=== PATIENT | female | born 1965 | race African-American/Black ===

== ENCOUNTER 2024-08-12 09:50 | Outpatient (AMB) | payer OTHER, SELFPAY ==
--- NOTE | 2024-08-12 10:22 | A.OFFPC_ITS ---
Vital Signs 08/12/24 10:30 Height 5 ft 2 in Weight 298 lb 8 oz BMI 54.6 BP 134/74 Blood Pressure Location Lt brachial Position Sitting Respiration 15 Pulse 83 Pulse Source Pulse Oximeter Pulse Oximetry (%) 99 Oxygen Delivery Method Room Air Intake Visit Reasons: New Pat. Est. Care Intake Note: new patient to establish care and patient also needs refill on medications. Allergies Penicillins Allergy (Severe, Verified 08/12/24 10:47) Hives Medication List - Last Reconciled 08/12/24 by Gwen Gomez, [facility]- albuterol sulfate 90 mcg/actuation inhalation amlodipine 10 mg PO DAILY atorvastatin (Lipitor) 10 mg PO DAILY budesonide-formoterol 160-4.5 mcg/actuation 2 puffs inhalation BID hydrochlorothiazide 25 mg PO DAILY losartan 50 mg PO DAILY Tobacco use date assessed: 08/12/24 Dental Screening Dental Screen Date: 08/12/24 Did you have a dental visit in the last 12 months?: No Did you have a dental problem in the last 6 months where you did not have access to dental care?: No Was dental information given to patient?: No HPI HPI Comments History of Present Illness0 Details 59 y/o F with With generalized anxiety, major depressive disorder, hypertension, COPD, Obesity , Iron def anemia, Vit D def Social: disabled Health Maintenance: ? Colon ? Mammo ? DEXA ? PAP ? Tdap Specialists: Pulm Counselor Here today as a new patient, to [facility], Coming from [facility] in [place], [place]. Relocated to [place] in March 2024. No medical records available for me today. HTN controlled on current therapy. Denies cardiac complaints. COPD well controlled on current inhaler, was ff'd by Pulm in [place]. States she has already had her flu vaccine for the 2019 season. Reports that she has received 1 pneumococcal vaccine within the 5 years FABI/MDD Mood stable w/o med. active in counseling, this is helpful. Denies SI/HI. Exam Awake alert oriented, no acute distress Regular rate and rhythm Lung sounds diminished throughout Mood and affect appropriate Plan Pulmonology referral for routine COPD management Continue current medications as prescribed Return to office in 8-10 weeks for a routine follow up and to continue establish care, fasting labs to be done 1 week before, sooner as needed [facility] Medical History (Updated 08/12/24 @ 15:33 by Gwen Gomez, [facility]) Anxiety and depression Edema Swelling Arthritis Hypertension Chronic bronchitis Surgical History (Updated 08/12/24 @ 10:36 by Frank Powell MA) No pertinent past surgical history Family History (Updated 08/12/24 @ 10:37 by Frank Powell MA) Mother Hypertension High cholesterol Diabetes Social History (Updated 08/12/24 @ 10:30 by Frank Powell MA) Household Members: None Housing: Apartment Are you a primary healthcare or medical to a significant other at home: No Do you presently have visiting nurse or other home services: No 75 years or older and lives alone: No Alcohol intake: current Alcohol intake frequency: a few times a month Alcohol type: beer and wine Patient Tobacco Use Status: Never used Tobacco e-Cigarette/Vaping Use: Never Used Current occupational status: disabled Cognitive needs: No Hearing needs: No Vision needs: Yes (wear glasses) Questionnaire PHQ-9 Over the last 2 weeks, how often have you been bothered by any of the following problems? 1. Little interest or pleasure in doing things: not at all 2. Feeling down, depressed, or hopeless: several days 3. Trouble falling or staying asleep, or sleeping too much: several days 4. Feeling tired or having little energy: several days 5. Poor appetite or overeating: more than half the days 6. Feeling bad about yourself - or that you are a failure or have let yourself or your family down: not at all 7. Trouble concentrating on things, such as reading the newspaper or watching television: not at all 8. Moving or speaking so slowly that other people could have noticed. Or the opposite - being so fidgety or restless that you have been moving around a lot more than usual: not at all 9. Thoughts that you would be better off or of hurting yourself in some way: not at all Total score: 5 Depression Screening Interpretation: Negative Depression Screening Done: Yes 39985 - PHQ-9 Billing: Yes Source: Developed by Drs. Gene Bennett, Jenn Cardona, Crescencio Ricketts and colleagues, with an educational katina from [employer]. Thrive Questionnaire Date Thrive assessed: 08/12/24 I am a: Patient What is your living situation today?: I have a steady place to live Within the past 12 months, did the food you bought not last and you didn't have the money to get more?: Sometimes True Within the past 12 months, did you worry whether your food would run out before you got money to buy more?: Sometimes True Do you have trouble paying for medicines?: No Do you have trouble getting transportation to medical appointments?: No Do you have trouble paying your heating and electricity bill?: No Do you have trouble taking care of your child, family member or friend?: No Do you have trouble with day-to-day activities such as bathing, preparing meals, shopping, managing finances, etc.?: Yes Are you currently unemployed and looking for a job?: No Are you interested in more education?: No THRIVE Score: 2 AUDIT C Alcohol Use Questionnaire (AUDIT-C) 1. How often do you have a drink containing alcohol?: Monthly or less 2. How many drinks containing alcohol do you have on a typical day when you are drinking?: 1 or 2 3. How often do you have six or more drinks on one occasion?: Never Total Score: 1 Score Reviewed/Action Taken: Yes FABI-7 AMB Questionnaire FABI-7 Date FABI - 7 assessed: 08/12/24 Feeling nervous, anxious, or on edge: 1 = Several days Not being able to stop or control worryin = Several days Worrying too much about different things: 1 = Several days Trouble relaxin = Not at all Being so restless that it is hard to sit still: 0 = Not at all Becoming easily annoyed or irritable: 0 = Not at all Feeling afraid as if something awful might happen: 0 = Not at all Total FABI-7 score (0-4 normal; 5-9 mild; 10-14 moderate; 15-21 severe): 3 Source: Developed by Drs. Gene Bennett, Jenn Cardona, Crescencio Ricketts and colleagues, with an educational katina from [employer]. FABI-7 Assessment Billing FABI-7 Assessment Tool: FABI-7 Assessment 49038 ACT Questionnaire In the past 4 weeks, how much of the time did your asthma keep you from getting as much done at work, school or at home?: Some of the time During the past 4 weeks, how often have you had shortness of breath?: 1-2 times a week During the past 4 weeks, how often did your asthma symptoms wake you up at night or earlier than usual in the morning?: Once or twice per week During the past 4 weeks, how often have you had to use your rescue inhaler or nebulizer medication?: Not at all How would you rate your asthma control during the past 4 weeks?: Well controlled ACT Interpretation: Negative Score: 20 Physical exam (Primary Care) Vital Signs: Last Vital Signs Pulse 83 08/12/24 10:30 Resp 15 08/12/24 10:30 BP 134/74 08/12/24 10:30 Pulse Ox 99 08/12/24 10:30 Oxygen Delivery Method Room Air 08/12/24 10:30 BMI result Body Mass Index 54.6 Tobacco/Smoking Status: Tobacco use Status Tobacco use date assessed 08/12/24 08/12/24 10:33 Patient Tobacco Use Status Never used Tobacco 08/12/24 10:33 e-Cigarette/Vaping Use Never Used 08/12/24 10:33 PHQ-9: PHQ-9 Score PHQ-9: Total score 5 08/12/24 10:51 Depression Screening Interpretation: Negative Thrive Assessment: Date of Thrive Assessment Date Thrive assessed 08/12/24 08/12/24 10:37 Assessment and Plan Assessment & Plan (1) COPD (chronic obstructive pulmonary disease): Code(s): J44.9 - Chronic obstructive pulmonary disease, unspecified Qualifiers: COPD type: chronic bronchitis Chronic bronchitis type: simple Qualified Code(s): J41.0 - Simple chronic bronchitis (2) HTN (hypertension): Code(s): I10 - Essential (primary) hypertension Qualifiers: Hypertension type: primary hypertension Qualified Code(s): I10 - Essential (primary) hypertension (3) Vitamin D deficiency: Code(s): E55.9 - Vitamin D deficiency, unspecified (4) Iron deficiency anemia: Code(s): D50.9 - Iron deficiency anemia, unspecified Qualifiers: Iron deficiency anemia type: unspecified iron deficiency Qualified Code(s): D50.9 - Iron deficiency anemia, unspecified (5) FABI (generalized anxiety disorder): Code(s): F41.1 - Generalized anxiety disorder (6) MDD (major depressive disorder), recurrent episode: Code(s): F33.9 - Major depressive disorder, recurrent, unspecified Qualifiers: Major depression episode severity: moderate Qualified Code(s): F33.1 - Major depressive disorder, recurrent, moderate (7) Morbid obesity with BMI of 50.0-59.9, adult: Code(s): E66.01 - Morbid (severe) obesity due to excess calories; Z68.43 - Body mass index [BMI] 50.0-59.9, adult Orders: Orders Comprehensive [place]. Panel Fast 09/04/24 D50.9 - Iron deficiency anemia, unspecified, E55.9 - Vitamin D deficiency, unspecified, I10 - Essential (primary) hypertension, J44.9 - Chronic obstructive pulmonary disease, unspecified Hemoglobin A1c 09/04/24 D50.9 - Iron deficiency anemia, unspecified, E55.9 - Vitamin D deficiency, unspecified, I10 - Essential (primary) hypertension, J44.9 - Chronic obstructive pulmonary disease, unspecified Complete Blood Count no Diff 09/04/24 D50.9 - Iron deficiency anemia, unspecified, E55.9 - Vitamin D deficiency, unspecified, I10 - Essential (primary) hypertension, J44.9 - Chronic obstructive pulmonary disease, unspecified IRON PROFILE 09/04/24 D50.9 - Iron deficiency anemia, unspecified, E55.9 - Vitamin D deficiency, unspecified, I10 - Essential (primary) hypertension, J44.9 - Chronic obstructive pulmonary disease, unspecified TSH reflex Free T4 09/04/24 D50.9 - Iron deficiency anemia, unspecified, E55.9 - Vitamin D deficiency, unspecified, I10 - Essential (primary) hypertension, J44.9 - Chronic obstructive pulmonary disease, unspecified Vitamin B12 and Folate 09/04/24 D50.9 - Iron deficiency anemia, unspecified, E55.9 - Vitamin D deficiency, unspecified, I10 - Essential (primary) hypertension, J44.9 - Chronic obstructive pulmonary disease, unspecified Lipid Panel 09/04/24 D50.9 - Iron deficiency anemia, unspecified, E55.9 - Vitamin D deficiency, unspecified, I10 - Essential (primary) hypertension, J44.9 - Chronic obstructive pulmonary disease, unspecified Microalbumin, Random (w Creat) 09/04/24 D50.9 - Iron deficiency anemia, unspecified, E55.9 - Vitamin D deficiency, unspecified, I10 - Essential (primary) hypertension, J44.9 - Chronic obstructive pulmonary disease, unspeci fied Vitamin D 25-OH Total 09/04/24 D50.9 - Iron deficiency anemia, unspecified, E55.9 - Vitamin D deficiency, unspecified, I10 - Essential (primary) hypertension, J44.9 - Chronic obstructive pulmonary disease, unspecified Referrals Pulmonology Referral J44.9 - Chronic obstructive pulmonary disease, unspecified Medications: New losartan 50 mg PO DAILY 90 tabs 0RF albuterol sulfate 90 mcg/actuation 2 puffs inhalation Q6H PRN 8.5 grams 2RF bronchospasm amlodipine 10 mg PO DAILY 90 tabs 0RF atorvastatin (Lipitor) 10 mg PO DAILY 90 tabs 0RF budesonide-formoterol 160-4.5 mcg/actuation 2 puffs inhalation BID 30.6 grams 0RF hydrochlorothiazide 25 mg PO DAILY 90 tabs 0RF Patient Instructions: Walk-In Care (Urgent Care): We Make it Easy Walk-in for urgent medical issues such as: ? Seasonal Allergies ? Insect Bites ? Cough ? Diarrhea ? Acute Asthma Attacks ? Back, Knee or Joint Pain ? Ear Infection ? Fever without a Rash ? Headaches ? Nausea ? [place], Rash or Skin Irritation ? Sore Throat ? Sports Physicals ? Vomiting Most insurances are accepted. Patients do not need to be part of the [facility] to seek care at the walk-in clinic. Locations [facility] , [place] [address] ? [phone] [facility] Walk-In Care in [place] provides services to ages 18 and over. Open Thursday-Thursday: 8 a.m. to 5 p.m. and Thursday: 9 a.m. to 3 p.m.* *Hours may vary due to staffing availability. To confirm Walk-In Care hours in [place], please call [phone]. [address] [place] [address] ? [phone] [facility] Walk-In Care in [place] provides services to ages 12 and over. Open Thursday-Thursday: 8 a.m. to 5 p.m. Hours may vary due to staffing availability. To confirm Walk-In Care hours in [place], please call [phone]. LABORATORY SERVICES: [facility] Lab ? Primary Location [address] [place] [address] Thursday through Thursday 6:00 AM ? 5:00 PM Thursday 7:00 AM ? 11:00 AM* [phone] The [facility] Lab is centrally located near the front entrance of the [facility] for easy outpatient access. Convenient parking is provided for outpatients. *Hours may vary due to staffing availability. To confirm Laboratory hours for a [place] location, please call [phone]. Offsite Location For your convenience, we offer offsite laboratory draw stations at the following locations: [address] [place] [address] ? [facility] [address], [address] Thursday through Thursday 7:30 AM ? 1:00 PM* [phone] *Hours may vary due to staffing availability. To confirm Laboratory hours for any location, please call [phone]. [place] ? [address] Thursday through Thursday 6:00 AM ? 3:30 PM* Thursday 6:30 AM ? 3 PM* [phone] *Hours may vary due to staffing availability. To confirm Laboratory hours for any location, please call [phone] [place] [address] Thursday through Thursday 7:30 AM ? 4:00 PM* [phone] *Hours may vary due to staffing availability. To confirm Laboratory hours for any location, please call [phone] [place] [address] Thursday through 9:00 AM ? 4:00 PM* *Hours may vary due to staffing availability. To confirm Laboratory hours for any location, please call [phone]. Appointments are not necessary. Walk-ins are welcome. Like all the departments throughout the [facility], our Lab undergoes frequent reviews to ensure the quality and accuracy of test results, and our staff takes special pride in its status as a nationally accredited facility. Patient Portal: ONE PATIENT. ONE RECORD. BETTER CARE. [facility] has a fully integrated, cutting- edge mobile electronic health information system that has revolutionized the way we care for our patients and manage our organization. This system improves communication and coordination enabling us to provide safe, higher-quality care, and an overall positive experience for staff and patients. Our first priority, as always, is to deliver the highest quality care possible. The system is running in the background supporting that priority. This portal is for all [facility] services and practices. If you are experiencing any technical difficulties with enrolling or logging into the Patient Portal please complete the [facility] Patient Portal Technical Support Form. [facility] now offers a new secure on-line interactive tool for patients to review their health information ? ?Patient Portal. This interactive web portal will enable patients and their families to take an active role in their care by providing easy, secure access to their health information via the internet. The Patient Portal provides patients with instant access to their health information, including laboratory results, medications, allergies, demographic information, visit history, and more. In addition to managing their own care, parents and health care proxies with authorized consent will appreciate the ability to access the records of those individuals for whom they provide care. Please note: if you wish to gain access (Proxy) to another patient?s portal, you will be required to come to the Medical Records Department in person at [facility]. Both the patient giving proxy access and the proxy will need to provide photo identification and complete the appropriate authorization. The Patient Portal also allows track their appointments online. The [facility] Patient Portal also saves patients time by allowing them to submit updates to their demographic and contact information prior to their visits. Portal email notifications will also alert patients to any new activity on their portal, such as test results and new appointments. In order to initially enroll in the [facility] Patient Portal, you will need to enter some required information including the following: * your [facility] Medical Record number * your personal home email address * name * date of Please note: In order to enroll in the [facility] Patient Portal, we need to have your email address on file in your electronic medical record. ?The email address needs to be specific for one person (yourself) in order for your Portal enrollment to be successful. ?You can update your email address in person with our Registration staff when you are registering for a hospital visit. ?Otherwise, you will need to come to the Health Information Management (Medical Records) Department at [facility]. ?We are open from Thursday ? Thursday from 7:30 a.m. ? 4:30 p.m. ?You will be required to present a photo id. Once you have successfully enrolled in the Patient Portal, you will receive a one-time user id and password for the Portal, sent to your email address. ?This will allow you to log into the Patient Portal within 99 hrs and reset your own logon id and password, and define personal security questions. ?Once your permanent login and password have been set, you can log into the [facility] Patient Portal at any time via the blue button above or from the Portal Logon button on any page of the [facility] website. [facility] encourage all of our patients to enroll in Patient Portal as it presents a valuable opportunity for patients and their families to actively participate in their care and stay healthy Welcome to [facility]. ?We look forward to working with you. Coding Level of Care Code New Pt Level 4 (27662) Complex EM visit Add On G2211 Diagnoses Simple chronic bronchitis J41.0 COPD type: chronic bronchitis Chronic bronchitis type: simple Primary hypertension I10 Hypertension type: primary hypertension Vitamin D deficiency E55.9 Iron deficiency anemia, unspecified iron deficiency anemia type D50.9 Iron deficiency anemia type: unspecified iron deficiency FABI (generalized anxiety disorder) F41.1 Moderate episode of recurrent major depressive disorder F33.1 Major depression episode severity: moderate Morbid obesity with BMI of 50.0-59.9, adult E66.01; Z68.43 Additional Codes FABI-7 Assessment Billing - FABI-7 Assessment Tool: FABI-7 Assessment 84648 ([id number])
[2024-08-12 10:30] VITALS: BP 134/74; PULSE 83; RESP 15; O2SAT 99; BMI 54.6
== END 2024-08-12 10:58 | disposition home or self-care (01) ==
PROVIDERS: Visit Provider Nurse Practitioner Family
DX: J41.0 Simple chronic bronchitis (principal); F33.1 Major depressive disorder, recurrent, moderate; E66.01 Morbid (severe) obesity due to excess calories; Z68.43 Body mass index [BMI] 50.0-59.9, adult; I10 Essential (primary) hypertension; E55.9 Vitamin D deficiency, unspecified; D50.9 Iron deficiency anemia, unspecified; F41.1 Generalized anxiety disorder

== ENCOUNTER → 2024-08-12 09:50 | Outpatient (BNVA) | payer OTHER, SELFPAY | PROVIDERS: Visit Provider Nurse Practitioner Family | DX: J41.0 Simple chronic bronchitis (principal); I10 Essential (primary) hypertension; E55.9 Vitamin D deficiency, unspecified; D50.9 Iron deficiency anemia, unspecified; F41.1 Generalized anxiety disorder; F33.1 Major depressive disorder, recurrent, moderate; E66.01 Morbid (severe) obesity due to excess calories; Z68.43 Body mass index [BMI] 50.0-59.9, adult | CPT/HCPCS: 96127; 99202 ==

== ENCOUNTER 2024-12-14 08:50 | Outpatient (AMB) | payer OTHER, SELFPAY ==
--- NOTE | 2024-12-14 08:53 | MHC.PC.OV ---
Vital Signs 12/14/24 09:01 Height 5 ft 2 in Weight 306 lb 6 oz BMI 56.0 BP 110/68 Blood Pressure Location Rt brachial Position Sitting Respiration 16 Pulse 88 Pulse Source Pulse Oximeter Temp 98.4 F Temp Source Oral Pulse Oximetry (%) 96 Oxygen Delivery Method Room Air Intake Visit Reasons: 8-10 weeks 30 min routine fu/est care labs Intake Note: pt states she is having left leg pain due to arthritis Allergies Penicillins Allergy (Severe, Verified 12/14/24 09:06) Hives Medication List - Last Reconciled 12/14/24 by Andres Gomez, [facility]- albuterol sulfate 90 mcg/actuation 2 puffs inhalation Q6H PRN amlodipine 10 mg PO DAILY atorvastatin (Lipitor) 10 mg PO DAILY budesonide-formoterol 160-4.5 mcg/actuation 2 puffs inhalation BID hydrochlorothiazide 25 mg PO DAILY ibuprofen 600 mg PO TID PRN losartan 50 mg PO DAILY Tobacco use date assessed: 08/12/24 Dental Screening Dental Screen Date: 08/12/24 HPI HPI Comments History of Present Illness Details 59 y/o F with generalized anxiety, major depressive disorder, hypertension, COPD, Obesity , Iron def anemia, Vit D def, prediabetes Social: disabled Health Maintenance: ?Colon referral placed today ?Mammo ordered today ?DEXA ordered today ?PAP referred today ?Tdap given today 12/14/24 Flu UTD Specialists: Pulm Counselor Optho - last exam 1 year ago, will schedule exam at [facility]. Referral placed today. 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 She reports worsening symptoms including swelling and aching, especially after attending a social event Pain w/ ROM all directions makes climbing stairs hard. The patient manages the pain with ibuprofen 600 mg, which provides some relief, but notes that inflammation remains problematic. Also using bengay. The patient links these symptoms to her lifestyle as she remains active, with recent cooking activities during holidays noted as exacerbation factors. Would like [employer] for help w/ ADLs. Wonders about disability letter from me. HTN managed by current meds MDD/FABI stable on current meds Vit D def - stopped taking supplement, insurance wouldnt pay. COPD - referred to Pulm, was not able to make the appt. Taking inhalers as directed. Cold weather worsens her breathing. Review of Systems - Musculoskeletal: Reports Left lower leg pain and swelling. - Respiratory: Reports dyspnea on exertion, especially climbing stairs. - Back: Reports spasms and lower back pain. - Digestive: Denies abdominal pain. Exam: General: Well developed, well nourished, in no acute distress. Appears stated age. Head: Normocephalic, atraumatic. Eyes: Pupils are equal, round and reactive to light and accommodation. Conjunctivae are clear. Ears: TMs clear AU, EACS WNL Nose: Patent, without discharge. Mouth: There are no ulcers or lesions noted. No inflammation, no post nasal drip, no plaques nor exudates. Neck: Supple, no adenopathy or thyromegaly. Lungs: Clear to auscultation bilaterally. Dim throughout Heart: Regular rate and rhythm. 2/6 murmurs RSB, No click, rubs or gallops are noted. Abdomen: Bowel sounds present in all quadrants. The abdomen is soft, nontender, with no masses or organomegaly noted. No hernias are noted. Musculoskeletal: c/o pain w/ ROM all directions L knee, antalgic gait favoring L side, neurovasc intact Pulses: Peripheral pulses are equal and palpable bilaterally. Extremities: No clubbing, cyanosis is noted. Neurologic: Gait and station normal. Cranial Nerves 2-12 intact. Motor strength grossly symmetrical and intact. No sensory loss. Balance normal. Skin: No rashes, ulcers, or lesions noted. Turgor is good. Skin color is good. Hair and nails are without abnormalities. Psych: Normal eye contact, affect and mood appropriate, and normal interactions. Patient is alert and appropriate to context. Results: Labs from 12/14/2024 show low MCV and MCH 79.4, 25.9 otherwise normal CBC, normal electrolytes, normal renal function, hemoglobin A1c of 6.0%, normal calcium and iron profile, normal AST and ALT, elevated alk-phos at 142 elevated protein at 8.4, normal albumin, total cholesterol 184, triglycerides 102, LDL 102, HDL 62, normal B12, vitamin-D quite low at 13.9, normal folate and TSH Plan - Continue oral ibuprofen 600 mg, introducing topical diclofenac for localized application on arthritic joints. -Cont all meds as ordered Adjust PRN lab results- which are overdue and to be done today, - Initiate echocardiogram to evaluate newly detected heart murmur. - Schedule mammogram and bone density test in [place]. - Arrange a pulmonology follow-up appointment for COPD reassessment and manage dyspnea on exertion effectively. - Encourage weight management through dietary modifications and exercise as tolerated. - Provide information on [facility] services for obtaining home support assistance. Seek disability info from [employer] -info provided today. - Advise completion of eye exam, offering [place] as a location. Patient was informed and verbally consented to the use of an ambient scribe for clinic note documentation during this visit. Discussion Notes I discussed with the patient the detection of a heart murmur, and the plan to perform an echocardiogram for comprehensive evaluation. We discussed the benefits and potential relief that topical ibuprofen might provide for arthritis pain management. I emphasized the importance of keeping upcoming health maintenance appointments such as the mammogram and bone density test. I advised on further pulmonary follow-up for symptomatic COPD management to address the exertional dyspnea she is experiencing. I provided guidance on utilizing community support through [facility] for her functional limitations in daily activities. The patient was instructed on the relevance of maintaining walk-in blood work for monitoring vitamin D levels and overall health. I reinforced the importance of weight management as part of her treatment plan. Patient Instructions - Continue with current medications and start using topical ibuprofen twice daily to manage joint pain. - Arrange for blood work today to reassess vitamin D levels and overall health. - Expect a call for scheduling mammogram and bone density test. - Follow up with the heel sprayer first for COPD-related concerns. - Contact [facility] for a home assistance evaluation. - Keep an eye on symptoms and seek medical attention if significant changes occur. - Consider scheduling an eye exam locally when convenient. - Engage in appropriate lifestyle modifications to aid weight management and improve overall health. - Return for regular check-in in six months or sooner if necessary. An additional 20 minutes was spent addressing the problem(s) noted at todays visit. This includes time spent before the visit reviewing the chart, time spent during the visit, and time spent after the visit on documentation reviewing laboratory results, diagnostic imaging, medications, performing a medically necessary evaluation, counseling on diagnoses, care coordination, ordering appropriate tests, ordering appropriate medications, review of tests performed by other providers, reporting test results with the patient, communication with other healthcare providers. [facility] LABS [facility] REFILLS, CONSIDER FUTURE LABS ORDERS [facility] Medical History (Updated 12/14/24 @ 17:02 by Andres Gomez [facility]) Anxiety and depression Edema Swelling Arthritis Hypertension Chronic bronchitis Surgical History (Updated 08/12/24 @ 10:36 by Frank Powell MA) No pertinent past surgical history Family History (Updated 08/12/24 @ 10:37 by Frank Powell MA) Mother Hypertension High cholesterol Diabetes Social History (Updated 08/12/24 @ 10:30 by Frank Powell MA) Household Members: None Housing: Apartment Are you a primary personal care worker to a significant other at home: No Do you presently have visiting nurse or other home services: No Alcohol intake: current Alcohol intake frequency: a few times a month Alcohol type: beer and wine Patient Tobacco Use Status: Never used Tobacco e-Cigarette/Vaping Use: Never Used Current occupational status: disabled Cognitive needs: No Hearing needs: No Vision needs: Yes (wear glasses) Questionnaire PHQ-9 Over the last 2 weeks, how often have you been bothered by any of the following problems? 1. Little interest or pleasure in doing things: several days 2. Feeling down, depressed, or hopeless: several days 3. Trouble falling or staying asleep, or sleeping too much: several days 4. Feeling tired or having little energy: several days 5. Poor appetite or overeating: several days 6. Feeling bad about yourself - or that you are a failure or have let yourself or your family down: not at all 7. Trouble concentrating on things, such as reading the newspaper or watching television: several days 8. Moving or speaking so slowly that other people could have noticed. Or the opposite - being so fidgety or restless that you have been moving around a lot more than usual: not at all 9. Thoughts that you would be better off or of hurting yourself in some way: not at all Total score: 6 Depression Screening Interpretation: Positive Depression Screening Follow-up: Existing condition Depression Screening Done: Yes 22045 - PHQ-9 Billing: Yes Source: Developed by Drs. Gene Bennett, Jenn Cardona, Crescencio Ricketts and colleagues, with an educational katina from [employer]. Thrive Questionnaire Date Thrive assessed: 12/12/24 I am a: Patient What is your living situation today?: I have a steady place to live Within the past 12 months, did the food you bought not last and you didn't have the money to get more?: Sometimes True Within the past 12 months, did you worry whether your food would run out before you got money to buy more?: Sometimes True Do you have trouble paying for medicines?: Yes Do you have trouble getting transportation to medical appointments?: Yes Do you have trouble paying your heating and electricity bill?: Yes Do you have trouble taking care of your child, family member or friend?: No Do you have trouble with day-to-day activities such as bathing, preparing meals, shopping, managing finances, etc.?: No Are you currently unemployed and looking for a job?: No Are you interested in more education?: No Please select the resources that you would like help with: Food, Paying for medicine and Transportation Currently or been in a relationship where the following occur: No concerns reported THRIVE Score: 4 AUDIT C Alcohol Use Questionnaire (AUDIT-C) 1. How often do you have a drink containing alcohol?: 2-4 times a month 2. How many drinks containing alcohol do you have on a typical day when you are drinking?: 1 or 2 3. How often do you have six or more drinks on one occasion?: Never Total Score: 2 Score Reviewed/Action Taken: Yes FABI-7 AMB Questionnaire FABI-7 Date FABI - 7 assessed: 12/14/24 Feeling nervous, anxious, or on edge: 1 = Several days Not being able to stop or control worryin = Several days Worrying too much about different things: 1 = Several days Trouble relaxin = Several days Being so restless that it is hard to sit still: 1 = Several days Becoming easily annoyed or irritable: 0 = Not at all Feeling afraid as if something awful might happen: 0 = Not at all Total FABI-7 score (0-4 normal; 5-9 mild; 10-14 moderate; 15-21 severe): 5 Source: Developed by Drs. Gene Bennett, Jenn Cardona, Crescencio Ricketts and colleagues, with an educational katina from [employer]. FABI-7 Assessment Billing FABI-7 Assessment Tool: FABI-7 Assessment 11545 Physical exam (Primary Care) Vital Signs: Last Vital Signs Temp 98.4 F 12/14/24 09:01 Pulse 88 12/14/24 09:01 Resp 16 12/14/24 09:01 BP 110/68 12/14/24 09:01 Pulse Ox 96 12/14/24 09:01 Oxygen Delivery Method Room Air 12/14/24 09:01 BMI result Body Mass Index 56.0 BMI Assessment/Plan discussion: High BMI High, discussed plan: lifestyle Tobacco/Smoking Status: Tobacco use Status Tobacco use date assessed 08/12/24 12/14/24 08:55 Patient Tobacco Use Status Never used Tobacco 12/14/24 08:55 e-Cigarette/Vaping Use Never Used 12/14/24 08:55 PHQ-9: PHQ-9 Score PHQ-9: Total score 6 12/14/24 09:06 Depression Screening Interpretation: Positive Depression Screening Follow-up: Existing condition Thrive Assessment: Date of Thrive Assessment Date Thrive assessed 12/12/24 12/14/24 08:55 Currently or been in a relationship where the following occur: No concerns reported Immunizations Boostrix Tdap 2.5 Lf unit-8 mcg-5 Lf/0.5 mL intramuscular syringe Performing Provider: BRAYDEN Zuñiga [place] [facility] [place] [facility] Administered by: Nick Pollack CMA on 12/14/24 09:06 Dose Route Admin Location Dispensed Lot Number Expiration Date [facility] Phlebotomy Services Representative 0.5 mL IM Left Deltoid 0.5 mL [id number] 12/14/26 21125-052-64 [employer] VIS Given Date VIS Provided VIS Publication Date 12/14/24 Single Vaccine 21 Eligibility Eligibility Date Funding Source Not [facility] Eligible 12/14/24 Private Coding Level of Care Code Est Pt Level 3 (70357) Est Pt Prev Care 40-64y(51957) Diagnoses Encounter for general adult medical examination with abnormal findings Z00.01 Moderate episode of recurrent major depressive disorder F33.1 Major depression episode severity: moderate FABI (generalized anxiety disorder) F41.1 Iron deficiency anemia, unspecified iron deficiency anemia type D50.9 Iron deficiency anemia type: unspecified iron deficiency Vitamin D deficiency E55.9 Primary hypertension I10 Hypertension type: primary hypertension Simple chronic bronchitis J41.0 COPD type: chronic bronchitis Chronic bronchitis type: simple Morbid obesity with BMI of 50.0-59.9, adult E66.01; Z68.43 Need for Tdap vaccination Z23 Menopause Z78.0 Blurred vision, bilateral H53.8 Post-traumatic osteoarthritis of both knees M17.2 Osteoarthritis type: post-traumatic Heart murmur on physical examination R01.1 Prediabetes R73.03 Elevated alkaline phosphatase level R74.8 Additional Codes FABI-7 Assessment Billing - FABI-7 Assessment Tool: FABI-7 Assessment 48647 ([id number]) PHQ-9 - 07004 - PHQ-9 Billing: Yes ([id number]) Assessment & Plan Assessment & Plan (1) Encounter for general adult medical examination with abnormal findings: Code(s): Z00.01 - Encounter for general adult medical examination with abnormal findings (2) MDD (major depressive disorder), recurrent episode: Code(s): F33.9 - Major depressive disorder, recurrent, unspecified Category: Medical Qualifiers: Major depression episode severity: moderate Qualified Code(s): F33.1 - Major depressive disorder, recurrent, moderate (3) FABI (generalized anxiety disorder): Code(s): F41.1 - Generalized anxiety disorder Category: Medical (4) Iron deficiency anemia: Code(s): D50.9 - Iron deficiency anemia, unspecified Category: Medical Qualifiers: Iron deficiency anemia type: unspecified iron deficiency Qualified Code(s): D50.9 - Iron deficiency anemia, unspecified (5) Vitamin D deficiency: Code(s): E55.9 - Vitamin D deficiency, unspecified Category: Medical (6) HTN (hypertension): Code(s): I10 - Essential (primary) hypertension Category: Medical Qualifiers: Hypertension type: primary hypertension Qualified Code(s): I10 - Essential (primary) hypertension (7) COPD (chronic obstructive pulmonary disease): Code(s): J44.9 - Chronic obstructive pulmonary disease, unspecified Category: Medical Qualifiers: COPD type: chronic bronchitis Chronic bronchitis type: simple Qualified Code(s): J41.0 - Simple chronic bronchitis (8) Morbid obesity with BMI of 50.0-59.9, adult: Code(s): E66.01 - Morbid (severe) obesity due to excess calories; Z68.43 - Body mass index [BMI] 50.0-59.9, adult Category: Medical (9) Need for Tdap vaccination: Code(s): Z23 - Encounter for immunization (10) Menopause: Code(s): Z78.0 - Asymptomatic menopausal state Category: Medical (11) Blurred vision, bilateral: Code(s): H53.8 - Other visual disturbances Category: Medical (12) Osteoarthritis of knees, bilateral: Code(s): M17.0 - Bilateral primary osteoarthritis of knee Category: Medical Qualifiers: Osteoarthritis type: post-traumatic Qualified Code(s): M17.2 - Bilateral post-traumatic osteoarthritis of knee (13) Heart murmur on physical examination: Code(s): R01.1 - Cardiac murmur, unspecified Category: Medical (14) Prediabetes: Code(s): R73.03 - Prediabetes Category: Medical (15) Elevated alkaline phosphatase level: Comment: likely r/t Vit D def... start on Vit d supplement and monitor Code(s): R74.8 - Abnormal levels of other serum enzymes Category: Medical Plan . Orders: Orders XR DEXA axial skeleton Today E66.01 - Morbid (severe) obesity due to excess calories, Z13.820 - Encounter for screening for osteoporosis, Z68.43 - Body mass index [BMI] 50.0-59.9, adult, Z78.0 - Asymptomatic menopausal state CA echo transthoracic complete Today R01.1 - Cardiac murmur, unspecified Comprehensive [place]. Panel Fast 6 Months E55.9 - Vitamin D deficiency, unspecified, E66.01 - Morbid (severe) obesity due to excess calories, I10 - Essential (primary) hypertension, R73.03 - Prediabetes, R74.8 - Abnormal levels of other serum enzymes, Z68.43 - Body mass index [BMI] 50.0-59.9, adult Hemoglobin A1c 6 Months E55.9 - Vitamin D deficiency, unspecified, E66.01 - Morbid (severe) obesity due to excess calories, I10 - Essential (primary) hypertension, R73.03 - Prediabetes, R74.8 - Abnormal levels of other serum enzymes, Z68.43 - Body mass index [BMI] 50.0-59.9, adult Vitamin D 25-OH Total 6 Months E55.9 - Vitamin D deficiency, unspecified, E66.01 - Morbid (severe) obesity due to excess calories, I10 - Essential (primary) hypertension, R73.03 - Prediabetes, R74.8 - Abnormal levels of other serum enzymes, Z68.43 - Body mass index [BMI] 50.0-59.9, adult TDaP Immunization Today Z23 - Encounter for immunization MM tomosynthesis screening BI Today Z12.31 - Encounter for screening mammogram for malignant neoplasm of breast Complete Blood Count no Diff 6 Months E55.9 - Vitamin D deficiency, unspecified, E66.01 - Morbid (severe) obesity due to excess calories, I10 - Essential (primary) hypertension, R73.03 - Prediabetes, R74.8 - Abnormal levels of other serum enzymes, Z68.43 - Body mass index [BMI] 50.0-59.9, adult Lipid Panel 6 Months E55.9 - Vitamin D deficiency, unspecified, E66.01 - Morbid (severe) obesity due to excess calories, I10 - Essential (primary) hypertension, R73.03 - Prediabetes, R74.8 - Abnormal levels of other serum enzymes, Z68.43 - Body mass index [BMI] 50.0-59.9, adult Referrals Gastroenterology Referral Z12.11 - Encounter for screening for malignant neoplasm of colon CUSTODIAL SERVICES MANAGER Referral Z12.4 - Encounter for screening for malignant neoplasm of cervix Ophthalmology Referral H53.8 - Other visual disturbances Medications: New diclofenac sodium 3% 1 appl topical BID PRN 100 grams 4RF pain cholecalciferol (vitamin D3) 125 mcg PO DAILY 90 caps 0RF Refilled amlodipine 10 mg PO DAILY 90 tabs 0RF hydrochlorothiazide 25 mg PO DAILY 90 tabs 0RF atorvastatin (Lipitor) 10 mg PO DAILY 90 tabs 0RF losartan 50 mg PO DAILY 90 tabs 0RF Patient Instructions: Disability Benefits The [place] [facility] ([facility]) can help you understand how working may affect your benefits. Understanding your disability benefits can be complicated, but you can work and still receive benefits. The [facility] is part of the solution to this process and can help you reach your goal of financial independence. Your local Vocational Rehabilitation Office and [employer] is often the best place to get information. [facility] Disability Determination Services (DDS) is a division of the [place] [facility] [employer] which is 100% funded by the Social Security Administration (SSA). [facility] Disability Examiners and medical consultants determine eligibility of [place] applicants for two disability programs: Social Security Disability Insurance (SSDI) - ages 18- 65 and Supplemental Security Income (SSI) - ages - 65. [facility] Disability Determination Services (DDS) is a division of the [place] [facility] ([facility]), which is 100% funded by the Social Security Administration (SSA). Who we are and what we do [facility] disability examiners and medical consultants determine eligibility of [place] applicants for 2 disability programs: Social Security Disability Insurance (SSDI), ages 18 - 65 Supplemental Security Income (SSI), ages - 65 If you think you may be eligible for payments, call to file a claim or contact your local Social Security Office . You must contact the Social Security Administration to apply for benefits. If you are looking for an online application for either SSDI or SSI visit ssa.gov. For an update on case status call the [employer]ocational [employer]at [employer] (VDE) as identified in your introductory claimant letter. Looking for an overview of annual benefits for their case ssa.gov or The claims processed by the [facility] include: Initial applications Reconsideration applications ? First appeal of a denied initial application Continuing Disability Reviews ? Periodic reviews to determine if you should continue receiving benefits Disability Hearings ? [id number] informal hearing as a part of the appeal of a Continuing Disability Review cessation determination Special outreach efforts are made to homeless shelters and individuals diagnosed with HIV The S has offices in [place] and [place]. Consultants at [facility] We employ more than 70 medical and psychological consultants in-house and more than 300 medical and psychological consultants throughout the [facility] to assist us in determining claimants' eligibility for disability benefits under Social Security. How to Contact [facility] Online File a claim on-line [email or web address] Phone: [place] Call [facility] [place] [phone] Call [facility] [phone] [place] toll free [place] Call [facility] [place] [phone] Call [facility] [phone] [place] toll free Call [facility] [phone] To file an initial claim with [facility] [place] Call [facility] [place] [phone] To file an initial claim with [facility] Fax [place] or [phone] [place] Address [place] [address] [place] [address], [address], [place] [address] Health screenings for women You should visit your health care provider from time to time, even if you are healthy. The purpose of these visits is to: Screen for medical issues Assess your risk for future medical problems Encourage a healthy lifestyle Update vaccinations and other preventive care services Help you get to know your provider in case of an illness Information Even if you feel fine, you should still see your provider for regular checkups. These visits can help you avoid problems in the future. For example, the only way to find out if you have high blood pressure is to have it checked regularly. High blood sugar and high cholesterol levels also may not have any symptoms in the early stages. A simple blood test can check for these conditions. There are specific times when you should see your provider or receive specific health screenings. The [place] Preventive Services Task Force publishes a list of recommended screenings. Below are screening guidelines for women ages 18 to 39. BLOOD PRESSURE SCREENING Your blood pressure should be checked at least once every 3 to 5 years if: Your blood pressure is in the normal range (top number less than 120 mm Hg and bottom number less than 80 mm Hg) You don't have risk factors for high blood pressure Ask your provider if you need your blood pressure checked more often if: The top number is 120 to 129 mm Hg or the bottom number is 70 to 79 mm Hg You have diabetes, heart disease, kidney problems, are overweight, or have certain other health conditions You have a first-degree relative with high blood pressure You are Black You had high blood pressure during a If the top number is 130 mm Hg or greater or the bottom number is 80 mm Hg or greater, this is considered stage 1 hypertension. Schedule an appointment with your provider to learn how you can reduce your blood pressure. Watch for blood pressure screenings in your area. Ask your provider if you can stop in to have your blood pressure checked. BREAST CANCER SCREENING Experts do not agree about the benefits of breast self-exams in finding breast cancer or saving lives. Talk to your provider about what is best for you. A screening mammogram is not recommended for most women under age 40. Your provider may discuss and recommend mammograms, MRI scans, or ultrasounds if you have an increased risk for breast cancer, such as: A mother or sister who had breast cancer at a young age (most often starting screening earlier than the age the close relative was diagnosed) You carry a high-risk genetic marker CERVICAL CANCER SCREENING Cervical cancer screening should start at age 21 years unless your provider advises otherwise. After the first test: Women ages 21 through 29 should have a Pap test every 3 years. Exoprts do not agree on whether HPV testing is recommended for this age group. Women ages 30 through 65 should be screened with either a Pap test every 3 years or the HPV test every 5 years or both tests every 5 years (called cotesting ). Women who have been treated for precancer (cervical dysplasia) should continue to have Pap tests for 20 years after treatment or until age 65, whichever is longer. If you have had your uterus and cervix removed (total hysterectomy), and you have not been diagnosed with cervical cancer or precancer (high grade cervical neoplasia), you do not need cervical cancer screening. CHOLESTEROL SCREENING Cholesterol screening should begin at: Age 45 for women with no known risk factors for coronary heart disease Age 20 for women with known risk factors for coronary heart disease Repeat cholesterol screening should take place: Every 5 years for women with normal cholesterol levels More often if changes occur in lifestyle (including weight gain and diet) More often if you have diabetes, heart disease, kidney problems, or certain other conditions DIABETES SCREENING You should be screened for diabetes starting at age 35 and then repeated every 3 years if you have no risk factors for diabetes. Screening may need to start earlier and be repeated more often if you have other risk factors for diabetes, such as: You have a first degree relative with diabetes. You are overweight or have obesity. You have high blood pressure, prediabetes, or a history of heart disease. Screening for diabetes should be done if you are planning to become and you are overweight and have other risk factors such as high blood pressure. DENTAL EXAM Go to the dentist once or twice every year for an exam and cleaning. Your dentist will evaluate if you need more frequent visits. EYE EXAM Have an eye exam every 5 to 10 years before age 40. If you have vision problems, have an eye exam every 2 years or more often if recommended by your provider. You should have an eye exam that includes an examination of your retina (back of your eye) at least every year if you have diabetes. IMMUNIZATIONS Commonly needed vaccines include: Flu shot: get one every year. COVID-19 vaccine: ask your provider what is best for you. Tetanus-diphtheria and acellular pertussis (Tdap) vaccine: have one at or after age 19 as one of your tetanus-diphtheria vaccines if you did not receive it as an adolescent. Tetanus-diphtheria: have a booster (or Tdap) every 10 years. Varicella vaccine: receive 2 doses if you never had chickenpox or the varicella vaccine. Hepatitis B vaccine: receive 2, 3, or 4 doses, depending on your exact circumstances. Measles, mumps, and rubella (MMR) vaccine: receive 1 to 2 doses if you are not already immune to MMR. Your provider can tell you if you are immune. Ask your provider about the human papillomavirus (HPV) vaccine if: You have not received the HPV vaccine in the past You have not completed the full vaccine series (you should catch up on this shot) Ask your provider if you should receive other immunizations if you have certain health problems that increase your risk for some diseases such as pneumonia. INFECTIOUS DISEASE SCREENING Women who are sexually active should be screened for chlamydia and gonorrhea up until age 25. Women 25 years and older should be screened for chlamydia and gonorrhea if at high risk. Screening for hepatitis C: All adults ages 18 to 79 should get a one-time test for hepatitis C. people should be screened at every . Screening for human immunodeficiency virus (HIV): All people ages 15 to 65 should get a one-time test for HIV. Depending on your lifestyle and medical history, you may also need to be screened for infections such as syphilis and HIV, as well as other infections. PHYSICAL EXAM All adults should visit their provider from time to time, even if they are healthy. The purpose of these visits is to: Screen for disease Assess your risk of future medical problems Encourage a healthy lifestyle Update your vaccinations and other preventive care services Maintain a relationship with a provider in case of an illness Your height, weight, and BMI should be checked at every exam. During your exam, your provider may ask you about: Depression and anxiety Diet and exercise Alcohol and tobacco use Safety issues, such as using seat belts, smoke detectors, and intimate partner violence Your medicines and risk for interactions SKIN SELF-EXAM Your provider may check your skin for signs of skin cancer, especially if you're at high risk, such as if you: Have had skin cancer before Have close relatives with skin cancer Have a weakened immune system OTHER SCREENING Talk with your provider about colon cancer screening if you have a strong family history of colon cancer or polyps, or if you have had inflammatory bowel disease or polyps yourself. Routine bone density screening of women under 40 is not recommended.
[2024-12-14 09:01] VITALS: BP 110/68; PULSE 88; RESP 16; TEMP 36.9; O2SAT 96; BMI 56.0
--- OUTSIDE RECORDS SUMMARY | 2024-12-14 09:06 | XMS_ITS | Encounter Summary ---
Author Organization [facility] Address [address] [place] [address] Care Team Providers Care Fuel Cell Engineer Name Role Phone Unknown Pcp, Non Php Primary Care Provider Unava ilable Reason for Visit * Reason Comments E-prescribing Refill Request Encounter Details Date Type Department Care Team (Late st Contact Info) Description 07/27/2024 Refill [facility] Medicine [address] [place] [phone] Ina Pinto APRN [address] [id number] E-prescribing Refill Request Social History Tobacco Use Types Packs/Day Years Used Date Smoking Tobacco: Never Assessed Comments:Smoking Status:No c urrent tobacco use Comments Unknown Sex and Gender Information Value Date Recorded Sex Assigned at Not on file Legal Sex Female 4:20 PM EDT Gender Identity Not on file Sexual Orientation Not on file documented as of this encounter Plan of Treatment Not on file documented as of this encounter Visit Diagnoses Not on filedocumented in this encounter Care Teams Fuel Cell Engineer Relationship Specialty Start Date End Date Unknown Pcp, Non Php PCP - General 05/18/24 documented as of this encounter
--- OUTSIDE RECORDS SUMMARY | 2024-12-14 09:06 | XMS_ITS | Clinical Summary ---
Author Organization [facility] Address [address] [place] [address] Care Team Providers Care Commercial Lending Vice President Name Role Phone Unknown Pcp, Non Php Primary Care Provider Unava ilable Allergies Active Allergy Reactions Criticality Noted Date Comments Penicillins 10/04/2019 Medications Ibuprofen (ADVIL,MOTRIN) 600 MG tablet TAKE 1 TABLET 3 TIMES DAILY NEEDED. 45 2 10/04/2019 Active Atorvastatin Calcium (LIPITOR) 20 MG tablet TAKE 1 TABLET BY MOUTH EVERY DAY 90 0 09/04/2021 Active Coenzyme Q10 (CoQ10) 100 MG capsule TAKE 2 TABLET Every twelve hours 120 tablet 2 09/04/2021 Active Vitamin D, Ergocalciferol, 50 MCG (1999 UT) Cap TAKE 1 CAPSULE Daily 90 capsule 1 02/20/2023 Active Nitrofurantoin Monohyd Macro (MACROBID) 100 MG capsule Take 1 capsule twice daily 14 0 07/07/2023 Active Fluticasone Furoate-Vilante rol (Breo Ellipta) 100-25 MCG/ACT inhaler INHALE 1 PUFF BY MOUTH RINSE AFTER USE WITH WATER AND SPIT DAILY 1 3 12/22/2023 Active Albuterol (PROVENTIL HFA;VENTOLIN HFA) 90 mcg/ACT inhaler Inhale two puffs every 4 (four) hours if needed for wheezing. 18 g 06/23/2024 Active amLODIPine Besylate (NORVASC) 10 MG tablet Take one tablet (10 mg total) by mouth 1 (one) time each day. 30 tablet 06/23/2024 Active Budesonide-Form oterol Fumarate (SYMBICORT) 160-4.5 MCG/ACT inhaler Inhale two puffs 2 (two) times a day rinse mouth after use. 1 each 06/23/2024 Active hydroCHLOROthia zide (HYDRODIURIL) 25 MG tablet Take one tablet (25 mg total) by mouth 1 (one) time each day as directed. 30 tablet 06/23/2024 Active Losartan Potassium (COZAAR) 50 MG tablet Take one tablet (50 mg total) by mouth 1 (one) time each day. 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 PHQ9 score was 10 in the office today. Patient denies any suicidal ideation. Patient is currently not taking any antidepressant medication. Patient advised to follow up appointment with her PCP. Impression - [id number]: Patient states she talkes with her counsellor every 2 weeks over the phone. today. Patient denies any Patient is currently not taking any antidepressant medication. Encounter for immunization 08/14/2021 Encounter for screening for vascular disease Class 3 severe obesity with serious comorbidity and body mass index (BMI) of 50.0 to 59.9 in adult 08/14/2021 Overview (12/27/2023): Transitioned From: Morbid obesity Impression - [id number]: States she continues to eat low fat and low cholesterol foods. Diet and lifestyle modification discussed at the visit today. Mammographic microcalcification 06/28/2020 Hyperlipidemia 12/07/2019 Overview (12/27/2023): Impression - [id number]: Patient is currently not taking any Statin medication. States she continues to eat low fat and low cholesterol foods. Diet and lifestyle modification discussed at the visit today. Patient advised to for F/U blood work for CMP, Lipid and CBC at the visit today. Vitamin D deficiency 11/29/2019 Encounter for preventive health examination 09/23 Generalized osteoarthritis of multiple sites 10/2019 Benign essential hypertension 10/04/2019 Chronic bronchitis 10/04/2019 Overview (12/27/2023): Impression - [id number]: Patient states she has been stable on her current dose of medication. Patient advised to continue to follow up her PCP.; Description: Noted per Pulmonology note on 10/14/2019. Immunizations Name Administration Dates Next Due COVID-19, mRNA (Pfizer Pre F all 2022) Monovalent, 30 mcg/0.3 ml 09/04/2021,08/14/2021 Influenza,injectable,MDCK, Prsrv Fr,Quad 022 Influenza,injectable,quad,Prsrv Fr 09/06/2020 Influenza,recombinant,quad,injectable,Prsrv Fr 1 01/11/2019 PPV23 (Pneumovax) 11/10/2019 Zoster (Shingrix) 04/02/2022 Family History Medical History Relation Name Comments Diabetes Father diabetes mellit us : Mother, Father Other Father : Moth er, Father Diabetes Mother diabetes mellit us : Mother, Father Heart Disorder Mother cardiac disor radha : Mother Other Mother : Moth er, Father Relation Name Status Comments Father Mother Social History Tobacco Use Types Packs/Day Years Used Date Smoking Tobacco: Never Assessed Comments:Smoking Status:No c urrent tobacco use Comments Unknown Sex and Gender Information Value Date Recorded Sex Assigned at Not on file Legal Sex Female 4:20 PM EDT Gender Identity Not on file Sexual Orientation Not on file Last Filed Vital Signs Vital Sign Reading Time Taken Comments Blood Pressure 120/84 07/01/2023 11:19 AM EDT Pulse 90 07/01/2023 11:19 AM EDT Temperature 36.6 ??C (97.8 ??F) 07/01/2023 11:19 AM E DT Respiratory Rate 18 07/01/2023 11:19 AM EDT Oxygen Saturation 96% 07/01/2023 11:19 AM EDT Inhaled Oxygen Concentration - - Weight 130 kg (287 lb) 07/01/2023 11:19 AM EDT Height 157.5 cm (5' 2 ) 07/01/2023 11:19 AM EDT Body Mass Index 52.49 07/01/2023 11:19 AM EDT Plan of Treatment Health Maintenance Due Date Last Done Comments Parathyroid Hormone Screening 1965 Pap Smear 1981 DTaP/Tdap/Td (1 - Tdap) 1983 Hep B (1 of 3 - 19+ 3-dose series) 1984 Colon Cancer Screening 2010 Pneumococcal 50+ years (2 of 2 - PCV) 11/10/2020 11/10/2019 Mammogram/Breast Imaging 09/26/2021 020, 06/28/2020, 11/10/2019 Zoster (Shingrix) (2 of 2) 05/28/2022 04/02/2022 COVID-19 Vaccine ( season) 2024 09/04/2021, 08/14/2021 Influenza (#1) 2024 08/20/2022, 08/23, 11/10/2019 Hepatitis C Screening Completed 11/10/2019 Physical Discontinued 11/10/2019 EKG Discontinued 02/17/2023, 02/17/2023 LDL Cholesterol Discontinued 02/17/2023, 07/25, 04/02/2022, Additional history exists HPV Vaccine Aged Out No longer eligi ble based on patient's age to complete this topic Hep A Aged Out No longer eligi ble based on patient's age to complete this topic Hib Aged Out No longer eligi ble based on patient's age to complete this topic Meningococcal ACWY Aged Out No longer eligible based on patient's age to complete this topic Procedures * Due to [place] state law, this organization might not be sharing negative HIV tests. Procedure Name Priority Date/Time Associated Diagnosis Comments LIPID PANEL, PLASMA Routine 02/17/2023 1 1:50 AM EDT EKG 02/17/2023 11:00 AM EDT SCREENING MAMMOGRAPHY BILATERAL, 2 VIEWS EACH BREAST, INCLUDING CAD 09/26/2020 12:00 AM EST HEPATITIS C ANTIBODY W/ REFLEX TO RNA, QN, RT PCR Routine 11/10/2019 11:40 AM EST from Last 3 Months or Most Recently Relevant to Health Maintenance Results * Due to [facility] law, this organization might not be sharing negative HIV tests. * (ABNORMAL) LIPID PANEL, PLASMA (02/17/2023 11:50 AM EDT) Cholesterol 196 0 - 199 mg/dL PHCT CONVERSIONS Triglyceride 109 0 - 150 mg/dL PH[facility] CONVERSIONS VLDL Cholesterol 22 5 - 40 mg/dL PH[facility] CONVERSIONS HDL Cholesterol 72 50 - 80 mg/dL PH[facility] CONVERSIONS LDL Cholesterol 102(H) 0 - 100 mg/dL PH[facility] CONVERSIONS Cholesterol Non-HDL 124 0 - 130 mg/dl PH[facility] CONVERSIONS CHOL/HDL Ratio 2.7 PHCT CONVERSIONS 02/17/2023 11:5 0 AM EDT Narrative PHCT CONVERSIONS - 02/17/2023 7:50 PM EDT FASTING: YES Testing Performed at: [facility], [address] [place] [address], , Worship Director: Irma Dubose MD CL#[id number] us Ina Pinto APRN [facility] Final Res ult PHCT CONVERSIONS * EKG (02/17/2023 11:00 AM EDT) Narrative 02/17/2023 11:00 AM EDT Ordered by an unspecified provider. us Unknown Provider CARDIOVASCULAR-NO INBASKET RTG Final Result * SCREENING MAMMOGRAPHY BILATERAL, 2 VIEWS EACH BREAST, INCLUDING CAD (09/26/2020 12:00 AM EST) Narrative 09/26/2020 12:00 AM EST Ordered by an unspecified provider. us Unknown Provider GENERAL IMAGING- OTHER Final Re sult * HEPATITIS C ANTIBODY W/ REFLEX TO RNA, QN, RT PCR (11/10/2019 11:40 AM EST) Hepatitis C virus Ab NON-REACT PRATEEK NON-REACT PRATEEK PHCT CONVERSIONS Hepatitis C virus Ab 0.05 <1.00 PHCT CONVERSIONS Comment:Antibodies to HCV we re not detected. NOTE: This does not entirely exclude the possibility of exposure to HCV since antibody production may lag infection. If there is a high suspicion of HCV infection HCV RNA testing may be of diagnostic value. 11/10/2019 11:4 0 AM EST Narrative PHCT CONVERSIONS - 11/10/2019 9:58 PM EST Testing Performed at: [facility], [address] [place] [address], , Worship Director: Baylee Gaines MD CL#[id number] us Ina Pinto APRN LABORATORY Final Res ult PHCT CONVERSIONS from Last 3 Months or Most Recently Relevant to Health Maintenance Insurance MEDICAID B Member Subscriber Plan / Payer (Ef fective 2023-Present) Name:Kamryn Girard Relation to Subscriber:Self Name:Kamryn Girard Payer ID:Not on file Group ID:Not on file Type:Medicaid Address: [address] MANAGED MEDICARE ([facility]) Care Teams Commercial Lending Vice President Relationship Specialty Start Date End Date Unknown Pcp, Non Php PCP - General 05/18/24
== END 2024-12-14 09:25 | disposition home or self-care (01) ==
PROVIDERS: PCP Nurse Practitioner Family; Visit Provider Nurse Practitioner Family
DX: Z00.00 Encounter for general adult medical examination without abnormal findings (principal); F33.1 Major depressive disorder, recurrent, moderate; J41.0 Simple chronic bronchitis; E66.01 Morbid (severe) obesity due to excess calories; Z68.43 Body mass index [BMI] 50.0-59.9, adult; F41.1 Generalized anxiety disorder; D50.9 Iron deficiency anemia, unspecified; E55.9 Vitamin D deficiency, unspecified; I10 Essential (primary) hypertension; Z23 Encounter for immunization; Z78.0 Asymptomatic menopausal state; H53.8 Other visual disturbances; M17.2 Bilateral post-traumatic osteoarthritis of knee; R01.1 Cardiac murmur, unspecified; R73.03 Prediabetes; R74.8 Abnormal levels of other serum enzymes

== ENCOUNTER 2024-12-14 09:52 | Outpatient (REF) | payer OTHER, SELFPAY ==
--- OUTSIDE RECORDS SUMMARY | 2024-12-14 10:46 | XMS_ITS ---
Author Name [facility] Organization Unknown Results Test Name/Text Value Interpretation Date Range Source Bacteria Ur Cult SEE NOTE Abnormal [id number] [facility] History of Medication Use Medication Directions Dispensed Refills Start Date End Date Status hydroCHLOROthiazide 25 MG Oral Tablet hydroCHLOROthiazide 25 MG Oral TabletTAKE 1 TABLET DAILY DIRECTED. Quantity: 90 Refills: 1BIna olguin APRN Start : [id number] 021 completed Budesonide-Formoterol Fumarate 160-4.5 MCG/ACT Inhalation Aerosol Budesonide-Formoterol Fumarate 160-4.5 MCG/ACT Inhalation AerosolINHALE 2 PUFFS TWICE DAILY. RINSE MOUTH AFTER USE. Quantity: 1 Refills: 3BIna olguin APRN Start : [id number] GM Inhaler 022 completed CoQ10 100 MG Oral Capsule CoQ10 100 MG Oral CapsuleTAKE 2 TABLET Every twelve hours Quantity: 120 Refills: 2BIna olguin APRN Start : [id number] 021 completed Reclining Chair Reclining ChairLIFT RECLINING CHAIR Quantity: 1 Refills: Ina Larson APRN Start : [id number]-[id number] 022 completed Losartan Potassium 50 MG Oral Tablet Losartan Potassium 50 MG Oral TabletTAKE 1 TABLET BY MOUTH DAILY Quantity: 90 Refills: Ina Grant APRN Start : [id number] 019 completed Allergies Allergen Reaction Severity Comment Documented Date Source Statu s [facility] Immunizations Vaccine Date Source Lot Number Status [employer] COVID-19 Vac c 30 MCG/0.3ML Intramuscular Suspension 08/14/2021 [facility] [id number] complet ed Pneumococcal polysaccharide vaccine, 23 valent 11/10/2019 [facility] [id number] completed Fluzone Quadrivalent 0.5 ML Intramuscular Suspension Prefilled Syringe 09/06/2020 [facility] [id number] com pleted Pfizer-BioNTech COVID-19 Vac c 30 MCG/0.3ML Intramuscular Suspension 09/04/2021 [facility] [id number] complet ed Flublok Quadrivalent 0.5 ML Intramuscular Solution Prefilled Syringe 11/10/2019 [facility] [id number] compl eted
--- OUTSIDE RECORDS SUMMARY | 2024-12-14 10:46 | XMS_ITS | Encounter Summary ---
Author Organization [facility] Address [address] [place] [address] Care Team Providers Care Glove Turner And Former Name Role Phone Unknown Pcp, Non Php Primary Care Provider Unava ilable Reason for Visit * Reason Comments E-prescribing Refill Request Encounter Details Date Type Department Care Team (Late st Contact Info) Description 07/27/2024 Refill [facility] Medicine [address] [place] [phone] Ina Pinto APRN [address] [id number] E-prescribing Refill Request Social History Tobacco Use [...] on filedocumented in this encounter Care Teams Glove Turner And Former Relationship Specialty Start Date End Date Unknown Pcp, Non Php PCP - General 05/18/24 documented as of this encounter
--- OUTSIDE RECORDS SUMMARY | 2024-12-14 10:46 | XMS_ITS | Clinical Summary ---
Author Organization [facility] Address [address] [place] [address] Care Team Providers Care Rn New Grad Name Role Phone Unknown Pcp, Non Php [...] el sewhere 09/04/2021 Overview (12/27/2023): Impression - [id number]: Chronic bronchitis; Description: Chronic bronchitis Major depressive disorder, r ecurrent episode, moderate degree 08/14/2021 Overview (12/27/2023): Transitioned From: Depression, major, recurrent Impression - [id number]: Patient states she talkes with her Psychiatrist every 2 weeks over the phone. PHQ9 score was 10 in the office today. Patient denies any suicidal ideation. Patient is currently not taking any antidepressant medication. Patient advised to follow up appointment with her PCP. Impression - [id number]: Patient states she talkes with her counsellor every 2 weeks over the phone. today. Patient denies any Patient is currently not taking any antidepressant medication. Encounter for immunization 08/14/2021 Encounter for screening for vascular disease Class 3 severe obesity with serious comorbidity and body mass index (BMI) of 50.0 to 59.9 in adult 08/14/2021 Overview (12/27/2023): Transitioned From: Morbid obesity Impression - [id number]: States she continues to eat low fat and low cholesterol foods. Diet and lifestyle modification discussed at the visit today. Mammographic microcalcification 06/28/2020 Hyperlipidemia 12/07/2019 Overview (12/27/2023): Impression - [id number]: Patient is currently not taking any Statin [...] Chronic bronchitis 10/04/2019 Overview (12/27/2023): Impression - [id number]: Patient states she has been stable on [...] complete this topic Procedures * Due to [place] state law, this organization might not be [...] to Health Maintenance Results * Due to [facility] law, this organization might not be sharing [...] PM EDT FASTING: YES Testing Performed at: [facility], [address] [place] [address], , Assistant Manager Bilingual: Irma Dubose MD CL#[id number] us Ina Pinto APRN [facility] Final [...] 11/10/2019 9:58 PM EST Testing Performed at: [facility], [address] [place] [address], , Assistant Manager Bilingual: Baylee Gaines MD CL#[id number] us Ina Pinto APRN LABORATORY Final Res ult PHCT CONVERSIONS from Last 3 Months or Most Recently Relevant to Health Maintenance Insurance MEDICAID B Member Subscriber Plan / Payer (Ef fective 2023-Present) Name:Kamryn Girard Relation to Subscriber:Self Name:Kamryn Girard Payer ID:Not on file Group ID:Not on file Type:Medicaid Address: [address] MANAGED MEDICARE ([facility]) Care Teams Rn New Grad Relationship Specialty Start Date End Date Unknown Pcp, Non Php PCP - General 05/18/24
[2024-12-14 12:24] LABS: Hematocrit 39.8 % (37.0-47.0); Mean Corpuscular HGB Conc 32.7 g/dl (31.0-35.0); Mean Corpuscular Hemoglobin 25.9 pg (27.0-33.0); Mean Corpuscular Volume 79.4 fL (80.0-98.0); Mean Platelet Volume 10.8 fL (9.4-12.3); Platelet Count 240 X10*3/uL (160-400); Red Blood Count 5.01 X10*6/uL (4.20-5.50); Red Cell Distribution Width 14.2 % (11.0-16.0); White Blood Count 7.5 X10*3/uL (4.8-10.8)
[2024-12-14 12:38] LABS: Estimated Average Glucose 126 mg/dL; Hemoglobin A1C 142.9698 umol/L; Total Hemoglobin (HGBA1C) 3355.8187 umol/L
[2024-12-14 13:45] LABS: Alanine Aminotransferase 24 U/L (0-31); Albumin Level 4.1 g/dL (3.5-5.0); Alkaline Phosphatase 142 U/L (39-117); Anion Gap 11 (12-20); Aspartate Amino Transferase 20 U/L (5-31); Bilirubin Total 0.5 mg/dL (0.0-1.0); Blood Urea Nitrogen 15 mg/dL (9-16); Calcium 9.6 mg/dL (8.4-10.2); Carbon Dioxide 26 mmol/L (22-29); Chloride 105 mmol/L (96-108); Cholesterol 184 mg/dL (<200); Estimated Glomerular Filt Rate > 60; Glucose Fasting 118 mg/dL (60-99); HDL Cholesterol 62 mg/dL (>40); Iron 51 mcg/dL (30-160); LDL Cholesterol Calculated 102 mg/dL (<100); Percent Iron Saturation 20 % (15-50); Potassium 3.6 mmol/L (3.3-5.1); Sodium 138 mmol/L (135-145); Total Iron Binding Capacity 256 mcg/dL (228-428); Total Protein 8.4 g/dL (6.5-8.0); Triglycerides 102 mg/dL (<150); Unsaturated Iron Binding 205 ug/dL
[2024-12-14 13:49] LABS: TSH reflex Free T4 2.28 uIU/mL (0.32-4.0); Vitamin D 25-OH Total 13.9 ng/mL (>30)
[2024-12-14 13:56] LABS: Vitamin B12 522 pg/mL (200-900)
[2024-12-14 14:56] LABS: Folate 9.8 ng/mL (> or = 4.0)
== END 2024-12-14 09:53 | disposition home or self-care (01) ==
LOC: HO.WFDLDS 09:52
PROVIDERS: Visit Provider Nurse Practitioner Family
DX: Z00.01 Encounter for general adult medical examination with abnormal findings (principal); Z23 Encounter for immunization; F33.1 Major depressive disorder, recurrent, moderate; F41.1 Generalized anxiety disorder; D50.9 Iron deficiency anemia, unspecified; E55.9 Vitamin D deficiency, unspecified; I10 Essential (primary) hypertension; J41.0 Simple chronic bronchitis; E66.01 Morbid (severe) obesity due to excess calories; Z68.43 Body mass index [BMI] 50.0-59.9, adult; H53.8 Other visual disturbances; M17.2 Bilateral post-traumatic osteoarthritis of knee; T14.90XS Injury, unspecified, sequela; X58.XXXS Exposure to other specified factors, sequela; R01.1 Cardiac murmur, unspecified; R73.03 Prediabetes; R74.8 Abnormal levels of other serum enzymes; Z78.0 Asymptomatic menopausal state
CPT/HCPCS: 36415; 80053; 80061; 82306; 82607; 82746; 83036; 83540; 84443; 85027; 90471; 90715; 96127; 99212; 99396

== ENCOUNTER 2024-12-23 13:32 | Outpatient (AMB) | payer OTHER, SELFPAY ==
--- OUTSIDE RECORDS SUMMARY | 2024-12-23 13:41 | XMS_ITS | Encounter Summary ---
Author Organization [facility] Address [address] [place] [address] Care Team Providers Care Bus And Trolley Inspecting Dispatcher Name Role Phone Unknown Pcp, Non Php Primary Care Provider Unava ilable Reason for Visit * Reason Comments E-prescribing Refill Request Encounter Details Date Type Department Care Team (Late st Contact Info) Description 07/27/[address] [facility] Medicine [address] [place] [phone] Ina Pinto APRN [address] [id number] E-prescribing Refill Request Social History Tobacco Use [...] on filedocumented in this encounter Care Teams Bus And Trolley Inspecting Dispatcher Relationship Specialty Start Date End Date Unknown Pcp, Non Php PCP - General 05/18/24 documented as of this encounter
--- OUTSIDE RECORDS SUMMARY | 2024-12-23 13:41 | XMS_ITS | Clinical Summary ---
Author Organization [facility] Address [address] [place] [address] Care Team Providers Care Pocket Maker Name Role Phone Unknown Pcp, Non Php [...] el sewhere 09/04/2021 Overview (12/27/2023): Impression - [id number]: Chronic bronchitis; Description: Chronic bronchitis Major depressive disorder, r ecurrent episode, moderate degree 08/14/2021 Overview (12/27/2023): Transitioned From: Depression, major, recurrent Impression - [id number]: Patient states she talkes with her Psychiatrist every 2 weeks over the phone. PHQ9 score was 10 in the office today. Patient denies any suicidal ideation. Patient is currently not taking any antidepressant medication. Patient advised to follow up appointment with her PCP. Impression - [id number]: Patient states she talkes with her counsellor every 2 weeks over the phone. today. Patient denies any Patient is currently not taking any antidepressant medication. Encounter for immunization 08/14/2021 Encounter for screening for vascular disease Class 3 severe obesity with serious comorbidity and body mass index (BMI) of 50.0 to 59.9 in adult 08/14/2021 Overview (12/27/2023): Transitioned From: Morbid obesity Impression - [id number]: States she continues to eat low fat and low cholesterol foods. Diet and lifestyle modification discussed at the visit today. Mammographic microcalcification 06/28/2020 Hyperlipidemia 12/07/2019 Overview (12/27/2023): Impression - [id number]: Patient is currently not taking any Statin [...] Chronic bronchitis 10/04/2019 Overview (12/27/2023): Impression - [id number]: Patient states she has been stable on [...] to Health Maintenance Results * Due to [facility] law, this organization might not be sharing [...] PM EDT FASTING: YES Testing Performed at: [facility], [address] [place] [address], , Automatic Washer Mechanic: Irma Dubose MD CL#[id number] us Ina Pinto APRN [facility] LABORATORY Final [...] 11/10/2019 9:58 PM EST Testing Performed at: [facility], [address] [place] [address], , Automatic Washer Mechanic: Baylee Gaines MD CL#[id number] us Ina Pinto APRN LABORATORY Final Res ult PHCT CONVERSIONS from Last 3 Months or Most Recently Relevant to Health Maintenance Insurance MEDICAID B Member Subscriber Plan / Payer (Ef fective 2023-Present) Name:Kamryn Girard Relation to Subscriber:Self Name:Kamryn Girard Payer ID:Not on file Group ID:Not on file Type:Medicaid Address: [address] MANAGED MEDICARE ([facility]) Care Teams Pocket Maker Relationship Specialty Start Date End Date Unknown Pcp, Non Php PCP - General 05/18/24
--- NOTE | 2024-12-23 15:27 | A.OFFPC_ITS ---
Intake Visit Reasons: letter for shower bench Allergies Penicillins Allergy (Severe, Verified 12/23/24 15:28) Hives Medication List - Last Reconciled 12/23/24 by Gwen Gomez [facility]- albuterol sulfate 90 mcg/actuation 2 puffs inhalation Q6H PRN amlodipine 10 mg PO DAILY atorvastatin (Lipitor) 10 mg PO DAILY budesonide-formoterol 160-4.5 mcg/actuation 2 puffs inhalation BID cholecalciferol (vitamin D3) 125 mcg PO DAILY diclofenac sodium 1% (Arthritis Pain (diclofenac)) 2 grams topical QID PRN hydrochlorothiazide 25 mg PO DAILY ibuprofen 600 mg PO TID PRN losartan 50 mg PO DAILY miscellaneous medical supply 1 ea miscellaneous DAILY miscellaneous medical supply 1 ea miscellaneous DAILY miscellaneous medical supply 1 ea miscellaneous DAILY miscellaneous medical supply 1 ea miscellaneous DAILY Tobacco use date assessed: 12/23/24 Dental Screening Dental Screen Date: 12/23/24 Did you have a dental visit in the last 12 months?: Yes Did you have a dental problem in the last 6 months where you did not have access to dental care?: No Was dental information given to patient?: Patient has dentist HPI HPI Comments History of Present Illness Details 59 y/o F with generalized anxiety, major depressive disorder, hypertension, COPD, Obesity , Iron def anemia, Vit D def, prediabetes Social: disabled Health Maintenance: ?Colon referral placed today ?Mammo ordered today ?DEXA ordered today ?PAP referred today ?Tdap given today 12/14/24 Flu UTD Specialists: Pulm Counselor Optho - last exam 1 year ago, will schedule exam at [facility]. Referral placed Telehealth visit today: The patient is a 59-year-old female presenting with concerns related to mobility and several health issues. She reports difficulties with her current chair due to arthritis, which exacerbates pain upon standing. She requires a lifting recliner to prevent further strain. The patient experiences mobility challenges in the bathroom, necessitating a shower bench and rollator walker with a seat for safety. Her vitamin D levels are notably low, which is problematic as she does not consume dairy or take oral calcium supplements. Additionally, lab results identified pre-diabetes, prompting the need for nutritional guidance. The chronicity of these issues has led to an ongoing requirement for adaptive equipment and nutritional supplements. Social History - The patient struggles with mobility du e to arthritis. - Lacks dairy and likely does not consum e adequate vitamin D through her diet. - Expressed interest in dietary modifica tion for pre-diabetes management with the assistance of a wire mill operator. Results Labs Nov 2024: vitamin-D level is quite low I have sent in a supplement for her to take daily. She also has signs of prediabetes. Encourage dietary and lifestyle modifications. Refer to wire mill operator to help. I have sent in refills of all of her medications. I placed fasting lab orders to be done 1 week before her next appointment which is in 6 months. The orders are already in place and she just needs to stop by to have them drawn. Discussion Notes During the visit, I discussed with the patient the current management of her arthritis and the need for appropriate mobility aids, including a lifting recliner to ease transitions. We talked about sending a letter to justify her need for this equipment to her supplier, [employer]. She was informed about her low vitamin D levels and was assured that the necessary prescription had bee n sent, addressing her previous challenges in obtaining it. I also reviewed her recent lab results, which indicated pre-diabetes, and we discussed the potential benefits of consulting with a wire mill operator to develop strategies that might prevent progression to diabetes. We scheduled labs to be done one week before her next regular follow-up in six months to monitor her status. Patient Instructions - Use the prescribed vitamin D supplemen t to address deficiency. - Follow up with [employer] for the provision of necessary mobility aids. - Contact the wire mill operator to set up tary consultations, either in person or by phone, to manage pre-diabetes. - Continue with arthritis-friendly exerc ises to maintain joint mobility and reduce pain. - Monitor any worsening of symptoms or n ew health concerns and report them promptly. Plan - Ensure the patient receives a lifting recliner and other necessary mobility equipment through [employer]. A letter has been prepared to justify her requirements. - Implement vitamin D supplementation to correct deficiency, with follow-up labs scheduled prior to her next visit. - Engage nutritional services to assist in managing pre-diabetes; develop a personalized plan focused on dietary changes to improve blood glucose regulation. - Continue to manage arthritis with life style adjustments and prescribed supports to mitigate pain and maintain functionality. - Reevaluate the patient's condition wit h additional lab work one week before the six-month follow-up to ensure vitamin D levels are regulated and pre- diabetes is addressed. Patient was informed and verbally consented to the use of an ambient scribe for clinic note documentation during this visit. Total time spent caring for the patient today was 30 minutes. This includes time spent before the visit reviewing the chart, time spent during the visit, and time spent after the visit on documentation, reviewing laboratory results, diagnostic imaging, medications, performing a medically necessary evaluation, counseling on diagnoses, care coordination, ordering appropriate tests, ordering appropriate medications, review of tests performed by other providers, reporting test results with the patient, communication with other healthcare providers. [facility] Medical History (Updated 12/23/24 @ 16:17 by Gwen Gomez [facility]) Anxiety and depression Arthritis Chronic bronchitis Edema Hypertension Swelling Surgical History (Updated 08/12/24 @ 10:36 by Frank Powell MA) No pertinent past surgical history Family History (Updated 08/12/24 @ 10:37 by Frank Powell MA) Mother Hypertension High cholesterol Diabetes Social History (Updated 08/12/24 @ 10:30 by Frank Powell MA) Household Members: None Housing: Apartment Are you a primary eye care professional to a significant other at home: No Do you presently have visiting nurse or other home services: No 75 years or older and lives alone: No Alcohol intake: current Alcohol intake frequency: a few times a month Alcohol type: beer and wine Patient Tobacco Use Status: Never used Tobacco e-Cigarette/Vaping Use: Never Used Current occupational status: disabled Cognitive needs: No Hearing needs: No Vision needs: Yes (wear glasses) Questionnaire Thrive Questionnaire Date Thrive assessed: 12/12/24 I am a: Patient What is your living situation today?: I have a steady place to live Within the past 12 months, did the food you bought not last and you didn't have the money to get more?: Sometimes True Within the past 12 months, did you worry whether your food would run out before you got money to buy more?: Sometimes True Do you have trouble paying for medicines?: Yes Do you have trouble getting transportation to medical appointments?: Yes Do you have trouble paying your heating and electricity bill?: Yes Do you have trouble taking care of your child, family member or friend?: No Do you have trouble with day-to-day activities such as bathing, preparing meals, shopping, managing finances, etc.?: No Are you currently unemployed and looking for a job?: No Are you interested in more education?: No Currently or been in a relationship where the following occur: No concerns reported THRIVE Score: 4 FABI-7 AMB Questionnaire FABI-7 Date FABI - 7 assessed: 12/14/24 Source: Developed by Drs. Gene Bennett, Jenn Cardona, Crescencio Ricketts and colleagues, with an educational katina from [employer]. Physical exam (Primary Care) Tobacco/Smoking Status: Tobacco use Status Tobacco use date assessed 12/23/24 12/23/24 15:28 Patient Tobacco Use Status Never used Tobacco 12/23/24 15:28 e-Cigarette/Vaping Use Never Used 12/23/24 15:28 Thrive Assessment: Date of Thrive Assessment Date Thrive assessed 12/12/24 12/23/24 15:28 Currently or been in a relationship where the following occur: No concerns reported Telehealth Telehealth Telehealth Platform: [facility] Location of provider rendering services: practice address Location of patient: address on file Patient Identification confirmed using: Name, : Yes Telehealth method: voice only Patient verbally consented to treatment: Yes Patient verbally consented to billing insurance company: Yes Patient informed of any privacy concerns related to visit: Yes Minutes spent on Phone/Video with Pt.: 15 Coding Level of Care Code Tele Est Pt Level 4 (39320) Complex EM visit Add On G2211 Diagnoses Prediabetes R73.03 Impaired mobility and endurance Z74.09 Vitamin D deficiency E55.9 Post-traumatic osteoarthritis of both knees M17.2 Osteoarthritis type: post-traumatic Morbid obesity with BMI of 50.0-59.9, adult E66.01; Z68.43 Assessment & Plan Assessment & Plan (1) Prediabetes: Code(s): R73.03 - Prediabetes Category: Medical (2) Impaired mobility and endurance: Code(s): Z74.09 - Other reduced mobility Category: Medical (3) Vitamin D deficiency: Code(s): E55.9 - Vitamin D deficiency, unspecified Category: Medical (4) Osteoarthritis of knees, bilateral: Code(s): M17.0 - Bilateral primary osteoarthritis of knee Category: Medical Qualifiers: Osteoarthritis type: post-traumatic Qualified Code(s): M17.2 - Bilateral post-traumatic osteoarthritis of knee (5) Morbid obesity with BMI of 50.0-59.9, adult: Code(s): E66.01 - Morbid (severe) obesity due to excess calories; Z68.43 - Body mass index [BMI] 50.0-59.9, adult Category: Medical Plan . Orders: Referrals Nutrition/Dietitian Referral E66.01 - Morbid (severe) obesity due to excess calories, R73.03 - Prediabetes, Z68.43 - Body mass index [BMI] 50.0-59.9, adult Medications: Changed From miscellaneous medical supply One rollator shower bench to use for bathing or showering; pt height is 5'2 , pt weight is 306lb 6oz 1 ea miscellaneous DAILY 1 ea 0RF E66.01 - Morbid (severe) obesity due to excess calories, M17.2 - Bilateral post-traumatic osteoarthritis of knee, Z68.43 - Body mass index [BMI] 50.0-59.9, adult To miscellaneous medical supply One rollator walker with bench seat pt height is 5'2 , pt weight is 306lb 6oz 1 ea miscellaneous DAILY 1 ea 0RF E66.01 - Morbid (severe) obesity due to excess calories, M17.2 - Bilateral post-traumatic osteoarthritis of knee, Z68.43 - Body mass index [BMI] 50.0-59.9, adult
== END 2024-12-23 17:05 | disposition home or self-care (01) ==
LOC: HO.HMCFM 13:32
PROVIDERS: PCP Nurse Practitioner Family; Visit Provider Nurse Practitioner Family
DX: R73.03 Prediabetes (principal); E66.01 Morbid (severe) obesity due to excess calories; Z68.43 Body mass index [BMI] 50.0-59.9, adult; Z74.09 Other reduced mobility; E55.9 Vitamin D deficiency, unspecified; M17.2 Bilateral post-traumatic osteoarthritis of knee

== ENCOUNTER 2025-02-01 15:58 | Outpatient (AMB) | payer OTHER, SELFPAY ==
--- NOTE | 2025-02-01 15:52 | A.OFFPC_ITS ---
Intake Visit Reasons: requesting a referral to a Neurosurgical Nurse Practitioner. Intake Note: Patient requesting referral for damage adjuster. Crown Ironer Operator Required: No Allergies Penicillins Allergy (Severe, Verified 02/01/25 16:07) Hives Medication List - Last Reconciled 02/01/25 by Gwen Gomez, [facility] albuterol sulfate 90 mcg/actuation 2 puffs inhalation Q6H PRN amlodipine 10 mg PO DAILY atorvastatin (Lipitor) 10 mg PO DAILY budesonide-formoterol 160-4.5 mcg/actuation 2 puffs inhalation BID cholecalciferol (vitamin D3) 625 mcg PO QWEEK cholecalciferol (vitamin D3) 125 mcg PO DAILY diclofenac sodium 1% (Arthritis Pain (diclofenac)) 2 grams topical QID PRN hydrochlorothiazide 25 mg PO DAILY ibuprofen 600 mg PO TID PRN losartan 50 mg PO DAILY miscellaneous medical supply 1 ea miscellaneous DAILY miscellaneous medical supply 1 ea miscellaneous DAILY miscellaneous medical supply 1 ea miscellaneous DAILY miscellaneous medical supply 1 ea miscellaneous DAILY miscellaneous medical supply 1 ea miscellaneous DAILY Tobacco use date assessed: 02/01/25 Dental Screening Dental Screen Date: 02/01/25 Did you have a dental visit in the last 12 months?: Yes Did you have a dental problem in the last 6 months where you did not have access to dental care?: No Was dental information given to patient?: Patient has dentist HPI HPI Comments History of Present Illness Details 59 y/o F with generalized anxiety, major depressive disorder, hypertension, COPD, Obesity , Iron def anemia, Vit D def, prediabetes Social: disabled Health Maintenance: ?Colon referral placed today ?Mammo ordered today ?DEXA ordered today ?PAP referred today ?Tdap given today 12/14/24 Flu UTD Specialists: Pulm Counselor Optho - last exam 1 year ago, will schedule exam at [facility]. Referral placed Ortho History of Present Illness - The patient is a 59-year-old female w ith left knee pain. - Osteoarthritis was diagnosed via prior rheumatology consultation, with prior episodes of knee inflammation noted. - While inflammation has improved, left knee pain and weakness are pronounced, impeding certain activities of daily living. - An OT recommendation prompted consider ation of an orthopedic evaluation for the left knee, with emphasis on potential therapeutic or non-surgical interventions. - The patient reports exacerbation upon stair climbing and moderate improvement with rest. - Occupational therapy has facilitated l ift chair arrangements, yet no physical therapy is currently active, she thinks she would benefit from this. Assessment and Plan 1. Osteoarthritis bilat knees, L current ly causing pain: The patient requires orthopedic evaluation at [facility] to determine appropriate management. Rheumatology is not currently prioritized due to symptomatic focus on mechanical intervention for osteoarthritis. [facility] Telehealth Attestation This visit was conducted via telephone, and all the details documented are accurate reflections of the telehealth interaction. The patient has been explained that this is an interactive (audio/video) telehealth encounter and what that consists of. The patient understands and wishes to proceed. [employer] platform was used. Total time spent caring for the patient today was 16 minutes. This includes time spent before the visit reviewing the chart, time spent during the visit, and time spent after the visit on documentation, reviewing laboratory results, diagnostic imaging, medications, performing a medically necessary evaluation, counseling on diagnoses, care coordination, ordering appropriate tests, ordering appropriate medications, review of tests performed by other providers, reporting test results with the patient, communication with other healthcare providers. [facility] Medical History (Updated 02/01/25 @ 16:20 by Gwen Gomez [facility]) Anxiety and depression Arthritis Chronic bronchitis Edema Hypertension Swelling Surgical History (Updated 08/12/24 @ 10:36 by Frank Powell MA) No pertinent past surgical history Family History (Updated 08/12/24 @ 10:37 by Frank Powell MA) Mother Hypertension High cholesterol Diabetes Social History (Updated 08/12/24 @ 10:30 by Frank Powell MA) Household Members: None Housing: Apartment Are you a primary home care associate to a significant other at home: No Do you presently have visiting nurse or other home services: No 75 years or older and lives alone: No Alcohol intake: current Alcohol intake frequency: a few times a month Alcohol type: beer and wine Patient Tobacco Use Status: Never used Tobacco e-Cigarette/Vaping Use: Never Used Current occupational status: disabled Cognitive needs: No Hearing needs: No Vision needs: Yes (wear glasses) Questionnaire Thrive Questionnaire Date Thrive assessed: 12/12/24 FABI-7 AMB Questionnaire FABI-7 Date FABI - 7 assessed: 12/14/24 Source: Developed by Drs. Gene Bennett, Jenn Cardona, Crescencio Ricketts and colleagues, with an educational katina from [employer]. Physical exam (Primary Care) Tobacco/Smoking Status: Tobacco use Status Tobacco use date assessed 02/01/25 02/01/25 15:55 Patient Tobacco Use Status Never used Tobacco 02/01/25 15:55 e-Cigarette/Vaping Use Never Used 02/01/25 15:55 Thrive Assessment: Date of Thrive Assessment Date Thrive assessed 12/12/24 02/01/25 15:55 Telehealth Telehealth Telehealth Platform: [facility] Location of provider rendering services: practice address Location of patient: address on file Patient Identification confirmed using: Name, : Yes Telehealth method: voice only Patient verbally consented to treatment: Yes Patient verbally consented to billing insurance company: Yes Patient informed of any privacy concerns related to visit: Yes Minutes spent on Phone/Video with Pt.: 10 Coding Level of Care Code Tele Est Pt Level 2 (33018) Complex EM visit Add On G2211 Diagnoses Post-traumatic osteoarthritis of both knees M17.2 Osteoarthritis type: post-traumatic Chronic pain of left knee M25.562; G89.29 Chronicity: chronic Assessment & Plan Assessment & Plan (1) Osteoarthritis of knees, bilateral: Code(s): M17.0 - Bilateral primary osteoarthritis of knee Category: Medical Qualifiers: Osteoarthritis type: post-traumatic Qualified Code(s): M17.2 - Bilateral post-traumatic osteoarthritis of knee (2) Left knee pain: Code(s): M25.562 - Pain in left knee Category: Medical Qualifiers: Chronicity: chronic Qualified Code(s): M25.562 - Pain in left knee; G89.29 - Other chronic pain Plan . Orders: Referrals [facility] Referral M17.2 - Bilateral post-traumatic osteoarthritis of knee, M25.562 - Pain in left knee Orthopedics Referral M17.2 - Bilateral post-traumatic osteoarthritis of knee, M25.562 - Pain in left knee
--- OUTSIDE RECORDS SUMMARY | 2025-02-01 18:28 | XMS_ITS | Clinical Summary ---
Author Organization [facility] Address [address] [place] [address] Care Team Providers Care High School Tutor Name Role Phone Unknown Pcp, Non Php [...] el sewhere 09/04/2021 Overview (12/27/2023): Impression - [id number]: Chronic bronchitis; Description: Chronic bronchitis Major depressive disorder, r ecurrent episode, moderate degree 08/14/2021 Overview (12/27/2023): Transitioned From: Depression, major, recurrent Impression - [id number]: Patient states she talkes with her Psychiatrist every 2 weeks over the phone. PHQ9 score was 10 in the office today. Patient denies any suicidal ideation. Patient is currently not taking any antidepressant medication. Patient advised to follow up appointment with her PCP. Impression - [id number]: Patient states she talkes with her counsellor every 2 weeks over the phone. today. Patient denies any Patient is currently not taking any antidepressant medication. Encounter for immunization 08/14/2021 Encounter for screening for vascular disease Class 3 severe obesity with serious comorbidity and body mass index (BMI) of 50.0 to 59.9 in adult 08/14/2021 Overview (12/27/2023): Transitioned From: Morbid obesity Impression - [id number]: States she continues to eat low fat and low cholesterol foods. Diet and lifestyle modification discussed at the visit today. Mammographic microcalcification 06/28/2020 Hyperlipidemia 12/07/2019 Overview (12/27/2023): Impression - [id number]: Patient is currently not taking any Statin [...] Chronic bronchitis 10/04/2019 Overview (12/27/2023): Impression - [id number]: Patient states she has been stable on [...] complete this topic Procedures * Due to [place] state law, this organization might not be [...] to Health Maintenance Results * Due to [facility] law, this organization might not be sharing [...] PM EDT FASTING: YES Testing Performed at: [facility], [address] [place] [address], , Payroll And Benefits Analyst: Irma Dubose MD [id number] us Ina Pinto APRN [facility] LABORATORY Final [...] 11/10/2019 9:58 PM EST Testing Performed at: [facility], [address] [place] [address], , Payroll And Benefits Analyst: Baylee Gaines MD CL#[id number] us Ina Pinto APRN LABORATORY Final Res ult PHCT CONVERSIONS from Last 3 Months or Most Recently Relevant to Health Maintenance Insurance MEDICAID B Member Subscriber Plan / Payer (Ef fective 2023-Present) Name:Kamryn Girard Relation to Subscriber:Self Name:Kamryn Girard Payer ID:Not on file Group ID:Not on file Type:Medicaid Address: [address] MANAGED MEDICARE ([facility]) Care Teams High School Tutor Relationship Specialty Start Date End Date Unknown Pcp, Non Php PCP - General 05/18/24
--- OUTSIDE RECORDS SUMMARY | 2025-02-01 18:28 | XMS_ITS | Encounter Summary ---
Author Organization [facility] Address [address] [place] [address] Care Team Providers Care Promotions Assistant Sales Marketing Name Role Phone Unknown Pcp, Non Php Primary Care Provider Unava ilable Reason for Visit * Reason Comments E-prescribing Refill Request Encounter Details Date Type Department Care Team (Late st Contact Info) Description 07/27/2024 Refill [facility] Medicine [address] [place] [phone] Ina Pinto APRN [address] [id number] E-prescribing Refill Request Social History Tobacco Use [...] on filedocumented in this encounter Care Teams Promotions Assistant Sales Marketing Relationship Specialty Start Date End Date Unknown Pcp, Non Php PCP - General 05/18/24 documented as of this encounter
== END 2025-02-01 17:07 | disposition home or self-care (01) ==
LOC: HO.HMCFM 15:58
PROVIDERS: PCP Nurse Practitioner Family; Visit Provider Nurse Practitioner Family
DX: M17.2 Bilateral post-traumatic osteoarthritis of knee (principal); M25.562 Pain in left knee; G89.29 Other chronic pain

== ENCOUNTER → 2025-02-01 15:58 | Outpatient (BNVA) | payer OTHER, SELFPAY | PROVIDERS: PCP Nurse Practitioner Family; Visit Provider Nurse Practitioner Family ==

== ENCOUNTER 2025-03-22 12:44 | Outpatient (AMB) | payer OTHER, SELFPAY ==
--- NOTE | 2025-03-22 13:06 | A.OFFPC_ITS ---
Vital Signs 03/22/25 13:12 Height 5 ft 2 in Weight 298 lb BMI 54.5 BP 144/78 H Blood Pressure Location Rt brachial Position Sitting Respiration 14 Pulse 86 Pulse Source Pulse Oximeter Temp 97.6 F Temp Source Oral Pulse Oximetry (%) 98 Oxygen Delivery Method Room Air Intake Visit Reasons: left foot pain Intake Note: Patient c/o left foot px since January. Patient has appt with ortho May 11 and they can't see her sooner Medical Coding Manager Required: No Allergies Penicillins Allergy (Severe, Verified 03/22/25 13:07) Hives Medication List - Last Reconciled 03/22/25 by Gwen Gomez, [employer]- albuterol sulfate 90 mcg/actuation 2 puffs inhalation Q6H PRN amlodipine 10 mg PO DAILY atorvastatin (Lipitor) 10 mg PO DAILY budesonide-formoterol 160-4.5 mcg/actuation 2 puffs inhalation BID cholecalciferol (vitamin D3) 625 mcg PO QWEEK cholecalciferol (vitamin D3) 125 mcg PO DAILY diclofenac sodium 1% (Arthritis Pain (diclofenac)) 2 grams topical QID PRN hydrochlorothiazide 25 mg PO DAILY ibuprofen 600 mg PO TID PRN losartan 50 mg PO DAILY miscellaneous medical supply 1 ea miscellaneous DAILY miscellaneous medical supply 1 ea miscellaneous DAILY miscellaneous medical supply 1 ea miscellaneous DAILY miscellaneous medical supply 1 ea miscellaneous DAILY miscellaneous medical supply 1 ea miscellaneous DAILY Shower Chair As directed daily assistance with bathing Tobacco use date assessed: 02/01/25 Dental Screening Dental Screen Date: 02/01/25 HPI HPI Comments History of Present Illness Details 60 y/o F with generalized anxiety, major depressive disorder, hypertension, COPD, Obesity , Iron def anemia, Vit D def, prediabetes Social: disabled Health Maintenance: ?Colon referral placed ?Mammo ordered ?DEXA ordered ?PAP referred ?Tdap given 12/14/24 Flu UTD Specialists: Pulm Counselor Optho - last exam 1 year ago, will schedule exam at [facility]. Referral placed Ortho History of Present Illness - The patient is a 60-year-old female pr esenting with L foot pain - Reports intermittent and severe foot p ain characterized by shooting, tingling, numbness, and burning - History of an ankle fracture in 1999, treated with casting, now fully resolved. - Pain exacerbated by recent slight trau ma while disposing of trash, leading to notable inflammation and swelling. - Has L knee pain which is chronic; refe rred to ortho, appt was rescheduled. - Recent laboratory workup confirmed abs ence of diabetes, appropriate iron levels, normal B vitamins, and required Vitamin D supplementation. - Her son is prescribed Gabapentin and w ould like to have this for herself. - Denies fever, chills, redness or warmt h to the joint, sob , chest pain. - Also reports clicking of fingers on Ri ght hand, not painful. Physical Exam General: Well developed, well nourished, in no acute distress. Appears stated age. Pulses: Peripheral pulses are equal and palpable bilaterally. Extremities: No clubbing or cyanosis. No discoloration noted. Skin intact. FROM Left ankle. Normal monofilament. Pain with palpation over the top of the left foot, even light touch. Normal strength. - Right hand neurovasc intact, + trigger fingers in right ring and 5th finger Discussion Notes I discussed with the patient the symptoms, noting the characteristic pain, tingling, and numbness. The definitive diagnostic study, an electromyography (EMG) and nerve conduction study, was explained as an option, although the patient expressed reluctance due to concerns about discomfort. I suggested duloxetine, as a daily regimen to help address the nerve pain, explaining it is not an immediate-effect medication and necessitates regular use to build efficacy. I encouraged the use of topical diclofenac already in use and prescribed refills. The patient was advised to avoid prolonged standing and rest the foot as much as possible, with emphasis on monitoring for any progression of symptoms or signs of clotting, such as sudden increased pain or swelling, redness, or warmth. She agreed to wait for the orthopedic consultation on May 11 before pursuing further diagnostic evaluation. Assessment and Plan The patient opts to delay diagnostic testing. Duloxetine is prescribed to manage symptoms, with emphasis on adherence for potential improvement over time. Pain relief via duloxetine and topical gel is the plan, supplementing activity moderation until orthopedic reassessment on May 11. No change recommended for knee arthritis management at present; symptoms already considered separately with routine management. Vitamin D deficiency Continued oral supplementation of Vitamin D authorized, with upcoming lab work planned for May to reevaluate levels. Trigger finger - offered and declined ortho referral as she does not like shots. Patient Instructions - Take duloxetine as prescribed to manag e foot pain. - Continue to use your topical pain-reli ef gel. - Rest your foot and avoid standing for long periods. - Attend your orthopedic appointment on May 11. - Return to medical attention if you not ice new or worsening symptoms, like increased swelling or redness in your foot. - RTO as scheduled, sooner PRN Consent Patient was informed and verbally consented to the use of an ambient scribe for clinic note documentation during this visit. Total time spent caring for the patient today was 30 minutes. This includes time spent before the visit reviewing the chart, time spent during the visit, and time spent after the visit on documentation, reviewing laboratory results, diagnostic imaging, medications, performing a medically necessary evaluation, counseling on diagnoses, care coordination, ordering appropriate tests, ordering appropriate medications, review of tests performed by other providers, reporting test results with the patient, communication with other healthcare providers. [facility] Medical History (Updated 03/22/25 @ 15:22 by Gwen Gomez, [facility]) Anxiety and depression Arthritis Chronic bronchitis Edema Hypertension Swelling Surgical History (Updated 08/12/24 @ 10:36 by Frank Powell MA) No pertinent past surgical history Family History (Updated 08/12/24 @ 10:37 by Frank Powell MA) Mother Hypertension High cholesterol Diabetes Social History (Updated 08/12/24 @ 10:30 by Frank Powell MA) Household Members: None Housing: Apartment Are you a primary urgent care physician to a significant other at home: No Do you presently have visiting nurse or other home services: No 75 years or older and lives alone: No Alcohol intake: current Alcohol intake frequency: a few times a month Alcohol type: beer and wine Patient Tobacco Use Status: Never used Tobacco e-Cigarette/Vaping Use: Never Used Current occupational status: disabled Cognitive needs: No Hearing needs: No Vision needs: Yes (wear glasses) Questionnaire Thrive Questionnaire Date Thrive assessed: 12/12/24 I am a: Patient What is your living situation today?: I have a steady place to live Within the past 12 months, did the food you bought not last and you didn't have the money to get more?: Sometimes True Within the past 12 months, did you worry whether your food would run out before you got money to buy more?: Sometimes True Do you have trouble paying for medicines?: Yes Do you have trouble getting transportation to medical appointments?: Yes Do you have trouble paying your heating and electricity bill?: Yes Do you have trouble taking care of your child, family member or friend?: No Do you have trouble with day-to-day activities such as bathing, preparing meals, shopping, managing finances, etc.?: No Are you currently unemployed and looking for a job?: No Are you interested in more education?: No Currently or been in a relationship where the following occur: No concerns reported THRIVE Score: 4 FABI-7 AMB Questionnaire FABI-7 Date FABI - 7 assessed: 12/14/24 Source: Developed by Drs. Gene Bennett, Jenn Cardona, Crescencio Ricketts and colleagues, with an educational katina from [employer]. Physical exam (Primary Care) Vital Signs: Last Vital Signs Temp 97.6 F 03/22/25 13:12 Pulse 86 03/22/25 13:12 Resp 14 03/22/25 13:12 BP 144/78 H 03/22/25 13:12 Pulse Ox 98 03/22/25 13:12 Oxygen Delivery Method Room Air 03/22/25 13:12 BMI result Body Mass Index 54.5 Tobacco/Smoking Status: Tobacco use Status Tobacco use date assessed 02/01/25 03/22/25 13:07 Patient Tobacco Use Status Never used Tobacco 03/22/25 13:07 e-Cigarette/Vaping Use Never Used 03/22/25 13:07 Thrive Assessment: Date of Thrive Assessment Date Thrive assessed 12/12/24 03/22/25 13:07 Currently or been in a relationship where the following occur: No concerns reported Coding Level of Care Code Est Pt Level 4 (15464) Complex EM visit Add On G2211 Diagnoses Paresthesia of left foot R20.2 Trigger finger of right hand, unspecified finger M65.30 Trigger finger location: unspecified finger Assessment & Plan Assessment & Plan (1) Paresthesia of left foot: Code(s): R20.2 - Paresthesia of skin Category: Medical (2) Trigger finger, right: Code(s): M65.30 - Trigger finger, unspecified finger Category: Medical Qualifiers: Trigger finger location: unspecified finger Qualified Code(s): M65.30 - Trigger finger, unspecified finger Plan . Medications: New duloxetine 20 mg PO DAILY 30 caps 3RF Refilled cholecalciferol (vitamin D3) 125 mcg PO DAILY 90 caps 2RF diclofenac sodium 1% (Arthritis Pain (diclofenac)) apply to single elbow, wrist or hand; for hand includes palm/fingers/back of hand 2 grams topical QID PRN 100 grams 5RF pain
[2025-03-22 13:12] VITALS: BP 144/78; PULSE 86; RESP 14; TEMP 36.4; O2SAT 98; BMI 54.5
--- OUTSIDE RECORDS SUMMARY | 2025-03-22 13:58 | XMS_ITS | Encounter Summary ---
Author Organization [facility] Address [address] [place] [address] Care Team Providers Care Manager Disaster Recovery Name Role Phone Unknown Pcp, Non Php Primary Care Provider Unava ilable Reason for Visit * Reason Comments E-prescribing Refill Request Encounter Details Date Type Department Care Team (Late st Contact Info) Description 07/27/2024 Refill [facility] Medicine [address] [place] [phone] Ina Pinto APRN [address] [id number] E-prescribing Refill Request Social History Tobacco Use [...] on filedocumented in this encounter Care Teams Manager Disaster Recovery Relationship Specialty Start Date End Date Unknown Pcp, Non Php PCP - General 05/18/24 documented as of this encounter
--- OUTSIDE RECORDS SUMMARY | 2025-03-22 13:58 | XMS_ITS | Clinical Summary ---
Author Organization [facility] Address [address] [place] [address] Care Team Providers Care Superintendent Drilling Name Role Phone Unknown Pcp, Non Php [...] el sewhere 09/04/2021 Overview (12/27/2023): Impression - [id number]: Chronic bronchitis; Description: Chronic bronchitis Major depressive disorder, r ecurrent episode, moderate degree 08/14/2021 Overview (12/27/2023): Transitioned From: Depression, major, recurrent Impression - [id number]: Patient states she talkes with her Psychiatrist every 2 weeks over the phone. PHQ9 score was 10 in the office today. Patient denies any suicidal ideation. Patient is currently not taking any antidepressant medication. Patient advised to follow up appointment with her PCP. Impression - [id number]: Patient states she talkes with her counsellor every 2 weeks over the phone. today. Patient denies any Patient is currently not taking any antidepressant medication. Encounter for immunization 08/14/2021 Encounter for screening for vascular disease Class 3 severe obesity with serious comorbidity and body mass index (BMI) of 50.0 to 59.9 in adult 08/14/2021 Overview (12/27/2023): Transitioned From: Morbid obesity Impression - [id number]: States she continues to eat low fat and low cholesterol foods. Diet and lifestyle modification discussed at the visit today. Mammographic microcalcification 06/28/2020 Hyperlipidemia 12/07/2019 Overview (12/27/2023): Impression - [id number]: Patient is currently not taking any Statin [...] Chronic bronchitis 10/04/2019 Overview (12/27/2023): Impression - [id number]: Patient states she has been stable on [...] Smear 1981 DTaP/Tdap/Td (1 - Tdap) 1983 Colon Cancer Screening 2010 Pneumococcal 50+ years (2 of 2 - PCV) 11/10/2020 11/10/2019 Mammogram/Breast Imaging 09/26/2021 020, 06/28/2020, 11/10/2019 Zoster (Shingrix) (2 of 2) 05/28/2022 04/02/2022 COVID-19 Vaccine ( - season) 2024 09/04/2021, 08/14/2021 Influenza (#1) 2024 08/20/2022, 08/23, 11/10/2019 RSV (1 - Risk 60-74 years 1-dose series) 2025 Hepatitis C Screening Completed 11/10/2019 Physical Discontinued 11/10/2019 EKG Discontinued 02/17/2023, 02/17/2023 LDL Cholesterol Discontinued 02/17/2023, 07/25, 04/02/2022, Additional history exists HPV Vaccine Aged Out No longer eligi ble based on patient's age to complete this topic Hep A Aged Out No longer eligi ble based on patient's age to complete this topic Hep B Aged Out No longer eligi ble based on patient's age to complete this topic Hib Aged Out No longer eligi ble based on patient's age to complete this topic Meningococcal ACWY Aged Out No longer eligible based on patient's age to complete this topic Zoster (Zostavax) Discontinued Procedures * Due to [place] Sch[place]inger law, this organization might not be sharing [...] to Health Maintenance Results * Due to [place] Sch[place] law, this organization might not be sharing [...] PM EDT FASTING: YES Testing Performed at: [facility], [address], [place] [address], , Wire Machine Cutter: Irma Dubose MD [id number] us Ina Pinto APRN LABORATORY Final Res ult PHCT CONVERSIONS * [...] 11/10/2019 9:58 PM EST Testing Performed at: [facility], [address] [place] [address], [place] [address], , Wire Machine Cutter: Baylee Gaines MD CL#[id number] us Ina Pinto SP[facility]ER LABORATORY Final Res ult PHCT CONVERSIONS from Last 3 Months or Most Recently Relevant to Health Maintenance Insurance MEDICAID [id number] Member Subscriber Plan / Payer (Ef fective 2023-Present) Name:Kamryn Girard Relation to Subscriber:Self Name:Kamryn Girard Payer ID:Not on file Group ID:Not on file Type:Medicaid Address: [address] MANAGED MEDICARE (RISK) Care Teams Superintendent Drilling Relationship Specialty Start Date End Date Unknown Pcp, Non Php PCP - General 05/18/24
== END 2025-03-22 14:47 | disposition home or self-care (01) ==
LOC: HO.HMCFM 12:45
PROVIDERS: PCP Nurse Practitioner Family; Visit Provider Nurse Practitioner Family
DX: R20.2 Paresthesia of skin (principal); M65.30 Trigger finger, unspecified finger

== ENCOUNTER → 2025-03-22 12:44 | Outpatient (BNVA) | payer OTHER, SELFPAY | PROVIDERS: PCP Nurse Practitioner Family; Visit Provider Nurse Practitioner Family | DX: F41.1 Generalized anxiety disorder (principal); F32.A Depression, unspecified; I10 Essential (primary) hypertension; J44.9 Chronic obstructive pulmonary disease, unspecified; E66.9 Obesity, unspecified; D50.9 Iron deficiency anemia, unspecified; E55.9 Vitamin D deficiency, unspecified; R20.2 Paresthesia of skin; M65.30 Trigger finger, unspecified finger | CPT/HCPCS: 99212 ==

== ENCOUNTER 2025-05-11 11:13 | Outpatient (REF) | payer OTHER, SELFPAY | END 2025-05-11 11:14 | disposition home or self-care (01) | LOC: HO.HOSX 11:13 | PROVIDERS: Visit Provider Orthopaedic Surgery | DX: Z13.89 Encounter for screening for other disorder (principal) ==

== ENCOUNTER 2025-05-12 14:07 | Outpatient (AMB) | payer OTHER, SELFPAY ==
--- NOTE | 2025-05-12 13:58 | MHC.PC.OV ---
Intake Visit Reasons: podiatry referral Intake Note: Referral for podiatry advised by orthopedics office. Allergies Penicillins Allergy (Severe, Verified 05/12/25 13:59) Hives Medication List - Last Reconciled 05/12/25 by Gwen Gomez, [facility]- albuterol sulfate 90 mcg/actuation 2 puffs inhalation Q6H PRN amlodipine 10 mg PO DAILY atorvastatin (Lipitor) 10 mg PO DAILY budesonide-formoterol 160-4.5 mcg/actuation 2 puffs inhalation BID cholecalciferol (vitamin D3) 125 mcg PO DAILY diclofenac sodium 1% (Arthritis Pain (diclofenac)) 2 grams topical QID PRN duloxetine 20 mg PO DAILY hydrochlorothiazide 25 mg PO DAILY ibuprofen 600 mg PO TID PRN losartan 50 mg PO DAILY miscellaneous medical supply 1 ea miscellaneous DAILY miscellaneous medical supply 1 ea miscellaneous DAILY miscellaneous medical supply 1 ea miscellaneous DAILY miscellaneous medical supply 1 ea miscellaneous DAILY miscellaneous medical supply 1 ea miscellaneous DAILY Shower Chair As directed daily assistance with bathing Tobacco use date assessed: 02/01/25 Dental Screening Dental Screen Date: 02/01/25 HPI HPI Comments History of Present Illness Details 60 y/o F with generalized anxiety, major depressive disorder, hypertension, COPD, Obesity , Iron def anemia, Vit D def, prediabetes Social: disabled Health Maintenance: ?Colon referral placed ?Mammo ordered ?DEXA ordered ?PAP referred ?Tdap given 12/14/24 Flu UTD Telehealth visit today to request podiatry referral for L foot pain and parasthesia Was referred to [facility] ortho for knee pain and this L foot issue, she was called by the office and appt canceled stating they dont manage feet and she needs podiatry she offers no new complaints regarding the foot - details below from the last exam. She is now interested in seeing hand surgeon for trigger fingers on R. She wants to do this after her L foot is all set. Mentions the diclofenac has helped her pain and the duloxetine has as well. However taking at HS and feels tired during the day. Plan for today: Podiatry referral to [facility] in [facility] hand surgeon referral cont all meds take duloxetine earlier in the evening FU as directed next month, sooner PRN Previously - The patient is a 60-year-old female presenting with L foot pain - Reports intermittent and severe foot pain characterized by shooting, tingling, numbness, and burning - History of an ankle fracture in 1999, treated with casting, now fully resolved. - Pain exacerbated by recent slight trauma while disposing of trash, leading to notable inflammation and swelling. - Has L knee pain which is chronic; referred to ortho, appt was rescheduled. - Recent laboratory workup confirmed absence of diabetes, appropriate iron levels, normal B vitamins, and required Vitamin D supplementation. - Her son is prescribed Gabapentin and would like to have this for herself. - Denies fever, chills, redness or warmth to the joint, sob , chest pain. - Also reports clicking of fingers on Right hand, not painful. Physical Exam General: Well developed, well nourished, in no acute distress. Appears stated age. Pulses: Peripheral pulses are equal and palpable bilaterally. Extremities: No clubbing or cyanosis. No discoloration noted. Skin intact. FROM Left ankle. Normal monofilament. Pain with palpation over the top of the left foot, even light touch. Normal strength. - Right hand neurovasc intact, + trigger fingers in right ring and 5th finger Discussion Notes I discussed with the patient the symptoms, noting the characteristic pain, tingling, and numbness. The definitive diagnostic study, an electromyography (EMG) and nerve conduction study, was explained as an option, although the patient expressed reluctance due to concerns about discomfort. I suggested duloxetine, as a daily regimen to help address the nerve pain, explaining it is not an immediate-effect medication and necessitates regular use to build efficacy. I encouraged the use of topical diclofenac already in use and prescribed refills. The patient was advised to avoid prolonged standing and rest the foot as much as possible, with emphasis on monitoring for any progression of symptoms or signs of clotting, such as sudden increased pain or swelling, redness, or warmth. She agreed to wait for the orthopedic consultation on May 11 before pursuing further diagnostic evaluation. Assessment and Plan The patient opts to delay diagnostic testing. Duloxetine is prescribed to manage symptoms, with emphasis on adherence for potential improvement over time. Pain relief via duloxetine and topical gel is the plan, supplementing activity moderation until orthopedic reassessment on May 11. No change recommended for knee arthritis management at present; symptoms already considered separately with routine management. Vitamin D deficiency Continued oral supplementation of Vitamin D authorized, with upcoming lab work planned for May to reevaluate levels. Trigger finger - offered and declined ortho referral as she does not like shots. Patient Instructions - Take duloxetine as prescribed to manage foot pain. - Continue to use your topical pain-relief gel. - Rest your foot and avoid standing for long periods. - Attend your orthopedic appointment on May 11. - Return to medical attention if you notice new or worsening symptoms, like increased swelling or redness in your foot. - RTO as scheduled, sooner PRN Telehealth Attestation The patient has been explained that this is an interactive (audio/video) telehealth encounter and what that consists of. The patient understands and wishes to proceed. [employer] platform was used. Total time spent caring for the patient today was 22 minutes. This includes time spent before the visit reviewing the chart, time spent during the visit, and time spent after the visit on documentation, reviewing laboratory results, diagnostic imaging, medications, performing a medically necessary evaluation, counseling on diagnoses, care coordination, ordering appropriate tests, ordering appropriate medications, review of tests performed by other providers, reporting test results with the patient, communication with other healthcare providers. [facility] Medical History (Updated 05/12/25 @ 15:26 by Gwen Gomez [facility]) Anxiety and depression Edema Swelling Arthritis Hypertension Chronic bronchitis Surgical History (Updated 08/12/24 @ 10:36 by Frank Powell MA) No pertinent past surgical history Family History (Updated 08/12/24 @ 10:37 by Frank Powell MA) Mother Hypertension High cholesterol Diabetes Social History (Updated 08/12/24 @ 10:30 by Frank Powell MA) Household Members: None Housing: Apartment Are you a primary career placement specialist to a significant other at home: No Do you presently have visiting nurse or other home services: No 75 years or older and lives alone: No Alcohol intake: current Alcohol intake frequency: a few times a month Alcohol type: beer and wine Patient Tobacco Use Status: Never used Tobacco e-Cigarette/Vaping Use: Never Used Current occupational status: disabled Cognitive needs: No Hearing needs: No Vision needs: Yes (wear glasses) Questionnaire Thrive Questionnaire Date Thrive assessed: 12/12/24 FABI-7 AMB Questionnaire FABI-7 Date FABI - 7 assessed: 12/14/24 Source: Developed by Drs. Gene Bennett, Jenn Cardona, Crescencio Ricketts and colleagues, with an educational katina from [employer]. Physical exam (Primary Care) Tobacco/Smoking Status: Tobacco use Status Tobacco use date assessed 02/01/25 05/12/25 14:02 Patient Tobacco Use Status Never used Tobacco 05/12/25 14:02 e-Cigarette/Vaping Use Never Used 05/12/25 14:02 Thrive Assessment: Date of Thrive Assessment Date Thrive assessed 12/12/24 05/12/25 14:02 Telehealth Telehealth Telehealth Platform: [employer] Location of provider rendering services: practice address Location of patient: address on file Patient Identification confirmed using: Name, : Yes Telehealth method: voice only Patient verbally consented to treatment: Yes Patient verbally consented to billing insurance company: Yes Patient informed of any privacy concerns related to visit: Yes Minutes spent on Phone/Video with Pt.: 15 Coding Level of Care Code Tele Est Pt Level 3 (02767) Complex EM visit Add On G2211 Diagnoses Paresthesia of left foot R20.2 Left foot pain M79.672 Trigger finger of right hand, unspecified finger M65.30 Trigger finger location: unspecified finger Assessment & Plan Assessment & Plan (1) Paresthesia of left foot: Code(s): R20.2 - Paresthesia of skin Category: Medical (2) Left foot pain: Code(s): M79.672 - Pain in left foot Category: Medical (3) Trigger finger, right: Code(s): M65.30 - Trigger finger, unspecified finger Category: Medical Qualifiers: Trigger finger location: unspecified finger Qualified Code(s): M65.30 - Trigger finger, unspecified finger Plan . Orders: Referrals Hand Surgery Referral M65.30 - Trigger finger, unspecified finger Podiatry Referral M79.672 - Pain in left foot, R20.2 - Paresthesia of skin
--- OUTSIDE RECORDS SUMMARY | 2025-05-12 14:09 | XMS_ITS | Encounter Summary ---
Author Organization [facility] Address [address] [place] [address] Care Team Providers Care Checker Loader Name Role Phone Unknown Pcp, Non Php Primary Care Provider Unava ilable Reason for Visit * Reason Comments E-prescribing Refill Request Encounter Details Date Type Department Care Team (Late st Contact Info) Description 07/27/2024 Refill [facility] [address] [place] [id number] Ina Pinto, TRAFFIC DIRECTOR [address] [place] [id number] E-prescribing Refill Request Social History Tobacco Use [...] on filedocumented in this encounter Care Teams Checker Loader Relationship Specialty Start Date End Date Unknown Pcp, Non Php PCP - General 05/18/24 documented as of this encounter
== END 2025-05-12 15:35 | disposition home or self-care (01) ==
LOC: HO.HMCFM 14:07
PROVIDERS: PCP Nurse Practitioner Family; Visit Provider Nurse Practitioner Family
DX: R20.2 Paresthesia of skin (principal); M79.672 Pain in left foot; M65.311 Trigger thumb, right thumb

== ENCOUNTER → 2025-05-12 14:07 | Outpatient (BNVA) | payer OTHER, SELFPAY | PROVIDERS: PCP Nurse Practitioner Family; Visit Provider Nurse Practitioner Family | DX: Z13.89 Encounter for screening for other disorder (principal) ==

== ENCOUNTER 2025-07-14 10:32 | Outpatient (REF) | payer OTHER, SELFPAY ==
[2025-07-14 16:17] LABS: Hematocrit 39.1 % (37.0-47.0); Hemoglobin 12.8 g/dl (12.0-16.0); Mean Corpuscular HGB Conc 32.7 g/dl (31.0-35.0); Mean Corpuscular Hemoglobin 25.9 pg (27.0-33.0); Mean Corpuscular Volume 79.0 fL (80.0-98.0); NRBC Abs Auto 0.000 X10*3/uL (0.0-0.012); NRBC Pct Auto 0.0 /100WBC (0.0-0.2); Platelet Count 229 X10*3/uL (160-400); Red Blood Count 4.95 X10*6/uL (4.20-5.50); White Blood Count 7.5 X10*3/uL (4.8-10.8)
[2025-07-14 16:46] LABS: Alanine Aminotransferase 17 U/L (0-31); Albumin Level 4.1 g/dL (3.5-5.0); Alkaline Phosphatase 131 U/L (39-117); Anion Gap 13 (12-20); Aspartate Amino Transferase 22 U/L (5-31); Blood Urea Nitrogen 18 mg/dL (9-16); Calcium 9.2 mg/dL (8.4-10.2); Carbon Dioxide 27 mmol/L (22-29); Chloride 102 mmol/L (96-108); Cholesterol 171 mg/dL (<200); Estimated Glomerular Filt Rate 51; HDL Cholesterol 60 mg/dL (>40); Potassium 3.7 mmol/L (3.3-5.1); Sodium 138 mmol/L (135-145); Total Protein 7.8 g/dL (6.5-8.0); Triglycerides 83 mg/dL (<150)
== END 2025-07-14 10:33 | disposition home or self-care (01) ==
LOC: HO.WFDLDS 10:32
PROVIDERS: PCP Nurse Practitioner Family; Visit Provider Nurse Practitioner Family
DX: R74.8 Abnormal levels of other serum enzymes (principal); R73.03 Prediabetes; I10 Essential (primary) hypertension; E66.01 Morbid (severe) obesity due to excess calories; E55.9 Vitamin D deficiency, unspecified; F41.1 Generalized anxiety disorder; F33.1 Major depressive disorder, recurrent, moderate; D50.9 Iron deficiency anemia, unspecified; R20.2 Paresthesia of skin; J41.0 Simple chronic bronchitis; Z79.899 Other long term (current) drug therapy; Z68.43 Body mass index [BMI] 50.0-59.9, adult
CPT/HCPCS: 36415; 80053; 80061; 82306; 85027; 96127; 99212

== ENCOUNTER 2025-07-14 10:32 | Outpatient (AMB) | payer OTHER, SELFPAY ==
--- NOTE | 2025-07-14 10:35 | MHC.PC.OV ---
Vital Signs 07/14/25 10:40 Height 5 ft 2 in Weight 290 lb 6 oz BMI 53.1 BP 124/70 Blood Pressure Location Lt brachial Position Sitting Respiration 12 Pulse 72 Pulse Source Pulse Oximeter Temp 97.2 F Temp Source Oral Pulse Oximetry (%) 96 Oxygen Delivery Method Room Air Intake Visit Reasons: 6 mo 30 min routine fu Intake Note: 6 Months routine follow up. Binding Dyer Required: No Allergies Penicillins Allergy (Severe, Verified 07/14/25 11:03) Hives Medication List - Last Reconciled 07/14/25 by Gwen Gomez, CLINICAL REIMBURSEMENT SPECIALIST- albuterol sulfate 90 mcg/actuation 2 puffs inhalation Q6H PRN amlodipine 10 mg PO DAILY atorvastatin (Lipitor) 10 mg PO DAILY budesonide-formoterol 160-4.5 mcg/actuation 2 puffs inhalation BID cholecalciferol (vitamin D3) 125 mcg PO DAILY diclofenac sodium 1% (Arthritis Pain (diclofenac)) 2 grams topical QID PRN duloxetine 20 mg PO DAILY hydrochlorothiazide 25 mg PO DAILY ibuprofen 600 mg PO TID PRN losartan 50 mg PO DAILY miscellaneous medical supply 1 ea miscellaneous DAILY miscellaneous medical supply 1 ea miscellaneous DAILY miscellaneous medical supply 1 ea miscellaneous DAILY miscellaneous medical supply 1 ea miscellaneous DAILY miscellaneous medical supply 1 ea miscellaneous DAILY Shower Chair As directed daily assistance with bathing Tobacco use date assessed: 07/14/25 Dental Screening Dental Screen Date: 07/14/25 Did you have a dental visit in the last 12 months?: Yes Did you have a dental problem in the last 6 months where you did not have access to dental care?: No Was dental information given to patient?: Patient has dentist HPI HPI Comments History of Present Illness Details 60 y/o F with generalized anxiety, major depressive disorder, hypertension, COPD, Obesity , Iron def anemia, Vit D def, prediabetes Social: disabled Health Maintenance: ?Colon cologaurd ordered today ?Mammo ordered ?DEXA ordered ?PAP referred ?Tdap given 12/14/24 Flu UTD History of Present Illness - The patient is a 60-year-old female presenting with a routine complex disease management visit. - Hyperlipidemia managed with atorvastatin 10 mg daily. - Essential Hypertension managed with losartan, hydrochlorothiazide, and amlodipine. - Chronic Leg Pain treated with duloxetine. - COPD maintained on albuterol and budesonide, exacerbated by weather. c/o thrush - Reports an 8-pound weight loss through lifestyle changes. - New relationship discussed. - Addressed need for mammogram, colonoscopy, flu shot, pneumonia vaccine. - Taking Vit D supplement - Met w/ hand surgeon for trigger finger, considering cortisone inj. - Due for labs today Review of Systems - Respiratory: Reports difficulty with breathing exacerbated by weather; denies ER visits for breathing issues. - Musculoskeletal: Reports swelling and pain in feet, improvement with medication. - Psychological: Denies new issues with anxiety and depression. - General: Reports weight loss. Exam: General: Well developed, well nourished, in no acute distress. Appears stated age. Head: Normocephalic, atraumatic. Eyes: Pupils are equal, round and reactive to light and accommodation. Conjunctivae are clear. Mouth: There are no ulcers or lesions noted. No inflammation, no post nasal drip, no plaques nor exudates. Lungs: Clear to auscultation bilaterally. Dim throughout Heart: Regular rate and rhythm. 2/6 murmurs RSB, No click, rubs or gallops are noted. Musculoskeletal: c/o pain w/ ROM all directions L knee, antalgic gait favoring L side, neurovasc intact Pulses: Peripheral pulses are equal and palpable bilaterally. Extremities: No clubbing, cyanosis is noted. Lymphedema BLE Neurologic: Gait and station normal. Cranial Nerves 2-12 intact. Motor strength grossly symmetrical and intact. No sensory loss. Balance normal. Skin: No rashes, ulcers, or lesions noted. Turgor is good. Skin color is good. Hair and nails are without abnormalities. Psych: Normal eye contact, affect and mood appropriate, and normal interactions. Patient is alert and appropriate to context. Results Pending Discussion Notes During today?s visit, we reviewed the patient's current management for hyperlipidemia, hypertension, chronic leg pain, anxiety, depression, and COPD. We discussed continuing her medications, including atorvastatin, losartan, hydrochlorothiazide, amlodipine, duloxetine, albuterol, and budesonide. I advised on refill strategies to prevent running out of COPD medications. The patient was encouraged by recent weight loss and planned to maintain dietary changes. Preventive care, such as mammograms and colonoguard, was emphasized, alongside flu and pneumonia vaccines. Finally, the patient reported a new relationship, adding positive support to her wellness journey. Patient was given time to ask questions. All questions were answered to their satisfaction. Assessment and Plan 1. Hyperlipidemia - Continue atorvastatin. - Routine lab monitoring. 2. Essential Hypertension - Continue current antihypertensives. - Monitor with future visits. 3. COPD - Continue inhalers. - Start nystatin for thrush - Refill strategy to avoid shortages. 4. Chronic Leg Pain/Anxiety/Depression - Maintain duloxetine therapy. Get flu and pneumococcal vaccines at pharmacy RTO 6 MO CPE, SOONER PRN Patient Instructions - Continue taking medicines as discussed. - Follow up with podiatry. - Stay active and maintain a healthy diet. - Schedule mammogram and colonoscopy. - Plan to get your flu vaccine soon. Consent Patient was informed and verbally consented to the use of an ambient scribe for clinic note documentation during this visit. Total time spent caring for the patient today was 45 minutes. This includes time spent before the visit reviewing the chart, time spent during the visit, and time spent after the visit on documentation, reviewing laboratory results, diagnostic imaging, medications, performing a medically necessary evaluation, counseling on diagnoses, care coordination, ordering appropriate tests, ordering appropriate medications, review of tests performed by other providers, reporting test results with the patient, communication with other healthcare providers. [facility] Medical History (Updated 05/12/25 @ 15:26 by Gwen Gomez, [facility]) Anxiety and depression Arthritis Chronic bronchitis Edema Hypertension Swelling Surgical History (Updated 08/12/24 @ 10:36 by Frank Powell MA) No pertinent past surgical history Family History (Updated 08/12/24 @ 10:37 by Frank Powell MA) Mother Hypertension High cholesterol Diabetes Social History (Updated 08/12/24 @ 10:30 by Frank Powell MA) Household Members: None Housing: Apartment Are you a primary pediatric acute care unit nurse to a significant other at home: No Do you presently have visiting nurse or other home services: No 75 years or older and lives alone: No Alcohol intake: current Alcohol intake frequency: a few times a month Alcohol type: beer and wine Patient Tobacco Use Status: Never used Tobacco e-Cigarette/Vaping Use: Never Used Second Hand Smoke Exposure: No service: No Current occupational status: disabled Cognitive needs: No Hearing needs: No Vision needs: Yes (wear glasses) Questionnaire PHQ-9 Over the last 2 weeks, how often have you been bothered by any of the following problems? 1. Little interest or pleasure in doing things: not at all 2. Feeling down, depressed, or hopeless: not at all 3. Trouble falling or staying asleep, or sleeping too much: not at all 4. Feeling tired or having little energy: not at all 5. Poor appetite or overeating: not at all 6. Feeling bad about yourself - or that you are a failure or have let yourself or your family down: not at all 7. Trouble concentrating on things, such as reading the newspaper or watching television: not at all 8. Moving or speaking so slowly that other people could have noticed. Or the opposite - being so fidgety or restless that you have been moving around a lot more than usual: not at all 9. Thoughts that you would be better off or of hurting yourself in some way: not at all Total score: 0 Depression Screening Interpretation: Negative Depression Screening Done: Yes [id number] - PHQ-9 Billing: Yes Source: Developed by Drs. Gene Bennett, Jenn Cardona, Crescencio Ricketts and colleagues, with an educational katina from [employer]. Thrive Questionnaire Date Thrive assessed: 07/14/25 I am a: Patient What is your living situation today?: I have a steady place to live Within the past 12 months, did the food you bought not last and you didn't have the money to get more?: Sometimes True Within the past 12 months, did you worry whether your food would run out before you got money to buy more?: Sometimes True Do you have trouble paying for medicines?: Yes Do you have trouble getting transportation to medical appointments?: Yes Do you have trouble paying your heating and electricity bill?: Yes Do you have trouble taking care of your child, family member or friend?: No Do you have trouble with day-to-day activities such as bathing, preparing meals, shopping, managing finances, etc.?: No Are you currently unemployed and looking for a job?: No Are you interested in more education?: No Currently or been in a relationship where the following occur: No concerns reported THRIVE Score: 4 FABI-7 AMB Questionnaire FABI-7 Date FABI - 7 assessed: 07/14/25 Feeling nervous, anxious, or on edge: 0 = Not at all Not being able to stop or control worryin = Not at all Worrying too much about different things: 0 = Not at all Trouble relaxin = Not at all Being so restless that it is hard to sit still: 0 = Not at all Becoming easily annoyed or irritable: 0 = Not at all Feeling afraid as if something awful might happen: 0 = Not at all Total FABI-7 score (0-4 normal; 5-9 mild; 10-14 moderate; 15-21 severe): 0 Source: Developed by Drs. Gene Bennett, Jenn Cardona, Crescencio Ricketts and colleagues, with an educational katina from [employer]. FABI-7 Assessment Billing FABI-7 Assessment Tool: FABI-7 Assessment 78457 Physical exam (Primary Care) Vital Signs: Last Vital Signs Temp 97.2 F 07/14/25 10:40 Pulse 72 07/14/25 10:40 Resp 12 07/14/25 10:40 BP 124/70 07/14/25 10:40 Pulse Ox 96 07/14/25 10:40 Oxygen Delivery Method Room Air 07/14/25 10:40 BMI result Body Mass Index 53.1 Tobacco/Smoking Status: Tobacco use Status Tobacco use date assessed 07/14/25 07/14/25 10:37 Patient Tobacco Use Status Never used Tobacco 07/14/25 10:37 e-Cigarette/Vaping Use Never Used 07/14/25 10:37 PHQ-9: PHQ-9 Score PHQ-9: Total score 0 07/14/25 10:37 Depression Screening Interpretation: Negative Thrive Assessment: Date of Thrive Assessment Date Thrive assessed 07/14/25 07/14/25 10:37 Currently or been in a relationship where the following occur: No concerns reported Coding Level of Care Code Est Pt Level 5 (65261) Complex EM visit Add On G2211 Diagnoses FABI (generalized anxiety disorder) F41.1 Moderate episode of recurrent major depressive disorder F33.1 Major depression episode severity: moderate Primary hypertension I10 Hypertension type: primary hypertension Prediabetes R73.03 Morbid obesity with BMI of 50.0-59.9, adult E66.01; Z68.43 Vitamin D deficiency E55.9 Iron deficiency anemia, unspecified iron deficiency anemia type D50.9 Iron deficiency anemia type: unspecified iron deficiency Paresthesia of left foot R20.2 Simple chronic bronchitis J41.0 COPD type: chronic bronchitis Chronic bronchitis type: simple Elevated alkaline phosphatase level R74.8 Additional Codes FABI-7 Assessment Billing - FABI-7 Assessment Tool: FABI-7 Assessment 52275 ([id number]) PHQ-9 - 24898 - PHQ-9 Billing: Yes ([id number]) Assessment & Plan Assessment & Plan (1) FABI (generalized anxiety disorder): Code(s): F41.1 - Generalized anxiety disorder Category: Medical (2) MDD (major depressive disorder), recurrent episode: Code(s): F33.9 - Major depressive disorder, recurrent, unspecified Category: Medical Qualifiers: Major depression episode severity: moderate Qualified Code(s): F33.1 - Major depressive disorder, recurrent, moderate (3) HTN (hypertension): Code(s): I10 - Essential (primary) hypertension Category: Medical Qualifiers: Hypertension type: primary hypertension Qualified Code(s): I10 - Essential (primary) hypertension (4) Prediabetes: Code(s): R73.03 - Prediabetes Category: Medical (5) Morbid obesity with BMI of 50.0-59.9, adult: Code(s): E66.01 - Morbid (severe) obesity due to excess calories; Z68.43 - Body mass index [BMI] 50.0-59.9, adult Category: Medical (6) Vitamin D deficiency: Code(s): E55.9 - Vitamin D deficiency, unspecified Category: Medical (7) Iron deficiency anemia: Code(s): D50.9 - Iron deficiency anemia, unspecified Category: Medical Qualifiers: Iron deficiency anemia type: unspecified iron deficiency Qualified Code(s): D50.9 - Iron deficiency anemia, unspecified (8) Paresthesia of left foot: Code(s): R20.2 - Paresthesia of skin Category: Medical (9) COPD (chronic obstructive pulmonary disease): Code(s): J44.9 - Chronic obstructive pulmonary disease, unspecified Category: Medical Qualifiers: COPD type: chronic bronchitis Chronic bronchitis type: simple Qualified Code(s): J41.0 - Simple chronic bronchitis (10) Elevated alkaline phosphatase level: Comment: likely r/t Vit D def... start on Vit d supplement and monitor Code(s): R74.8 - Abnormal levels of other serum enzymes Category: Medical Plan . Orders: Referrals Cologuard Test Z12.11 - Encounter for screening for malignant neoplasm of colon Medications: New nystatin swish and swallow 500,000 units (5 mL) PO DAILY 450 mL 0RF 90 days Refilled albuterol sulfate 90 mcg/actuation 2 puffs inhalation Q6H PRN 8.5 grams 1RF bronchospasm atorvastatin (Lipitor) 10 mg PO DAILY 90 tabs 0RF duloxetine 20 mg PO DAILY 90 caps 3RF budesonide-formoterol 160-4.5 mcg/actuation 2 puffs inhalation BID 30.6 grams 5RF amlodipine 10 mg PO DAILY 90 tabs 0RF hydrochlorothiazide 25 mg PO DAILY 90 tabs 0RF losartan 50 mg PO DAILY 90 tabs 0RF diclofenac sodium 1% (Arthritis Pain (diclofenac)) apply to single elbow, wrist or hand; for hand includes palm/fingers/back of hand 2 grams topical QID PRN 100 grams 5RF pain
--- OUTSIDE RECORDS SUMMARY | 2025-07-14 10:36 | XMS_ITS | Encounter Summary ---
Author Organization [facility] Address [address] [place] [address] Care Team Providers Care Strategic Partnership Specialist Name Role Phone Unknown Pcp, Non Php Primary Care Provider Unava ilable Reason for Visit * Reason Comments E-prescribing Refill Request Encounter Details Date Type Department Care Team (Late st Contact Info) Description 07/27/2024 Refill [facility] Medicine [address] [place] [id number] Ina Pinto, DEHYDROGENATION OPERATOR [address] [place] [address] E-prescribing Refill Request Social History Tobacco Use [...] on filedocumented in this encounter Care Teams Strategic Partnership Specialist Relationship Specialty Start Date End Date Unknown Pcp, Non Php PCP - General 05/18/24 documented as of this encounter
--- OUTSIDE RECORDS SUMMARY | 2025-07-14 10:36 | XMS_ITS ---
Author Name [facility] Organization Unknown History of Medication Use Medication Directions Dispensed Refills Start Date End Date Status Reclining Chair Reclining ChairLIFT RECLINING CHAIR Quantity: 1 Refills: 0Ina Pinto APRN Start : [id number] 022 completed Budesonide-Formoterol Fumarate 160-4.5 MCG/ACT Inhalation Aerosol Budesonide-Formoterol Fumarate 160-4.5 MCG/ACT Inhalation AerosolINHALE 2 PUFFS TWICE DAILY. RINSE MOUTH AFTER USE. Quantity: 1 Refills: 3BIna olguin APRN Start : [id number] GM Inhaler 022 completed CoQ10 100 MG Oral Capsule CoQ10 100 MG Oral CapsuleTAKE 2 TABLET Every twelve hours Quantity: 120 Refills: Ina Grant APRN Start : [id number] 021 completed hydroCHLOROthiazide 25 MG Oral Tablet hydroCHLOROthiazide 25 MG Oral TabletTAKE 1 TABLET DAILY DIRECTED. Quantity: 90 Refills: Ina Ricks APRN Start : [id number] 021 completed Losartan Potassium 50 MG Oral Tablet Losartan Potassium 50 MG Oral TabletTAKE 1 TABLET BY MOUTH DAILY Quantity: 90 Refills: Ina Grant APRN Start : [id number] 019 completed Allergies Allergen Reaction Severity Comment Documented Date Source Statu s [facility] Immunizations Vaccine Date Source Lot Number Status Pfizer-BioNTech COVID-19 Vac c 30 MCG/0.3ML Intramuscular Suspension 09/04/2021 [facility] [id number] complet ed Pfizer-BioNTech COVID-19 Vac c 30 MCG/0.3ML Intramuscular Suspension 08/14/2021 [facility] [id number] complet ed Fluzone Quadrivalent 0.5 ML Intramuscular Suspension Prefilled Syringe 09/06/2020 [facility] [id number] com pleted Flublok Quadrivalent 0.5 ML Intramuscular Solution Prefilled Syringe 11/10/2019 [facility] [id number] compl eted Pneumococcal polysaccharide vaccine, 23 valent 11/10/2019 [facility] [id number] completed Encounters Encounter Type Encounter Reason Primary Diagnosis Location Date Ambulatory [facility] 06/22/2024 Ambulatory [facility] 12/04/2023 Care Team Organization Name Specialty Phone Email Start Date End Da te [facility] 06/22/2024 [facility] 024 06/20/2025 [facility] Millie Buckley [facility] 0 04/14/2023 07/28/20[facility] 10/10/2021 04/22/2022
[2025-07-14 10:40] VITALS: BP 124/70; PULSE 72; RESP 12; TEMP 36.2; O2SAT 96; BMI 53.1
== END 2025-07-14 11:19 | disposition home or self-care (01) ==
LOC: HO.HMCFM 10:33
PROVIDERS: PCP Nurse Practitioner Family; Visit Provider Nurse Practitioner Family
DX: J41.0 Simple chronic bronchitis (principal); F33.1 Major depressive disorder, recurrent, moderate; E66.01 Morbid (severe) obesity due to excess calories; Z68.43 Body mass index [BMI] 50.0-59.9, adult; R73.03 Prediabetes; F41.1 Generalized anxiety disorder; I10 Essential (primary) hypertension; E55.9 Vitamin D deficiency, unspecified; D50.9 Iron deficiency anemia, unspecified; R20.2 Paresthesia of skin; R74.8 Abnormal levels of other serum enzymes